=== PATIENT | male | born 1955 | race Caucasian/White ===

== ENCOUNTER 2016-08-13 21:32 | Inpatient (IN) | payer BC ==
[2016-08-13] MEDS ORDERED: Diazepam SYRINGE* 5 MG/ML 2 ML SYRINGE (10 MG total) IV ONE (21:39)
[2016-08-13] MEDS ORDERED: Morphine INJ* 4 MG/ML 1 ML CARPUJECT IV ONE ×2 (21:47→22:09)
[2016-08-13] MEDS ORDERED: Ondansetron INJ* 2 MG/ML VIAL IV ONE (21:47)
[2016-08-13] MEDS ORDERED: Ketorolac INJ* 30 MG/ML 1 ML VIAL IV PUSH ONE (22:04)
[2016-08-13] MEDS ORDERED: NS 0.9% 1000 ML* 1,000 ML IV ONE (22:05)
--- NOTE | 2016-08-13 22:15 | ED ---
Back Pain - HPI Summary HPI Summary: Pt here w/ acute LBP. Fell last week in the snow onto his bottom but reports this was not a very hard nor serious appearing fall. No acute pain at that time but has had progressive soreness which developed into pain and eventually took him to his PCP's office. There he was dx'd w/ back pain and started on a methylprednisolone steroid taper, cyclobenzaprine and oxycontin for back pain. He's not sure where he is in his steroid taper. He was doing somewhat better on his meds until he was getting up to go to the bathroom tonight and moved "just right", triggering worse back pain which rendered him disabled. BIBA as his pain was intolerable and he couldn't move. Denies pain radiating into LE's and no incontinence of bowels/bladder. Denies N/V/D, ab pain , dysuria, urinary frequency, genital pain. No known h/o back issues. NOTE: pt has a baseline B/L pedal neuropathy which presents as a burning sensation in his feet. Etiology is unknown. 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 - Pain Intensity: 10 <Yvette Marin - Last Filed: 08/14/16 02:28> <Adrianne Horowitz - Last Filed: 08/15/16 19:38> - History of Current Complaint Chief Complaint: EDBackInjuryPain Stated Complaint: LOWER BACK PAIN Time Seen by Provider: 08/13/16 21:40 - Allergies/Home Medications Allergies/Adverse Reactions: Allergies Allergy/AdvReac Type Severity Reaction Status Date / Time No Known Allergies Allergy Verified 07/03/15 15:53 Home Medications: Home Medications Cyclobenzaprine TAB* [Flexeril TAB*] 10 mg PO TID PRN 08/14/16 [History Confirmed 08/14/16] Methylprednisolone [Medrol Dosepak 4 MG*] 0 mg PO .SEE SHERI INSTRUCTION 08/14/16 [History Confirmed 08/14/16] oxyCODONE SR TAB(*) [Oxycontin 10 mg (*)] 40 mg PO Q12HR 08/14/16 [History Confirmed 08/14/16] PMH/Surg Hx/FS Hx/Imm Hx Previously Healthy: No - recent back injury tx'd by PCP Endocrine/Hematology History: Reports: Other Endocrine/Hematological Disorders - Hematology w/u w/ Dr. Villanueva re: elevated RBC's and light chains Denies: Hx Anticoagulant Therapy, Hx Blood Disorders, Hx Diabetes Cardiovascular History: Denies: Hx Hypertension, Hx Pacemaker/ICD Respiratory History: Reports: Hx Sleep Apnea - CPAP - limited time per night as he pulls it off in his sleep - max 4 hrs History: Denies: Hx Renal Disease Sensory History: Reports: Hx Contacts or Glasses - CONTACTS- WILL WEAR GLASSES DAY OF SURGERY Denies: Hx Hearing Aid Opthamlomology History: Reports: Hx Contacts or Glasses - CONTACTS- WILL WEAR GLASSES DAY OF SURGERY Neurological History: Reports: Other Neuro Impairments/Disorders - tinnitus & B/ L peripheral neuropathy of unknown etiology Psychiatric History: Reports: Hx Anxiety, Other Psychiatric Issues/Disorders - insomnia - falls asleep but difficulty staying asleep Denies: Hx Panic Disorder - Surgical History Surgery Procedure, Year, and Place: L KNEE ACL - 1990- DR SAEZ. HERNIA 01/2014 Hx Anesthesia Reactions: No Infectious Disease History: No Infectious Disease History: Denies: History Other Infectious Disease, Traveled Outside the [place] in Last 30 Days - Family History Known Family History: Positive: None - Social History Occupation: Employed Full-time - self-employed, restaurant temple meat cutter Lives: With Family Alcohol Use: None Hx Substance Use: No Substance Use Type: Reports: None Hx Tobacco Use: No Smoking Status (MU): Never Smoked Tobacco <Yvette Marin - Last Filed: 08/14/16 02:28> Review of Systems Negative: Fever, Chills Negative: Chest Pain Negative: Shortness Of Breath Negative: Abdominal Pain, Vomiting, Diarrhea, Nausea Negative: dysuria, discharge, frequency, incontinence Musculoskeletal: Other - see HPI Negative: Bruising Neurological: Negative Positive: Anxious All Other Systems Reviewed And Are Negative: Yes <Yvette Marin - Last Filed: 08/14/16 02:28> Physical Exam Triage Information Reviewed: Yes Vital Signs On Initial Exam: Initial Vitals Resp 24 08/13/16 21:39 Vital Signs Reviewed: Yes Appearance: Positive: Well-Appearing, Well-Nourished, Pain Distress - pt straining in pain - hyperventilating at times Skin: Positive: Warm, Dry Head/Face: Positive: Normal Head/Face Inspection Eyes: Positive: Normal, EOMI, Conjunctiva Clear ENT: Positive: Other - mucosa dry Respiratory/Lung Sounds: Positive: Clear to Auscultation, Breath Sounds Present. Negative: Rales, Rhonchi, Wheezes Cardiovascular: Positive: Normal, RRR, Pulses are Symmetrical in both Upper and Lower Extremities, S1, S2. Negative: Leg Edema Left, Leg Edema Right Abdomen Description: Positive: Nontender, Soft. Negative: Pulsatile Mass Bowel Sounds: Positive: Present Musculoskeletal: Positive: Limited @ Neurological: Positive: Normal, Sensory/Motor Intact, Alert, Oriented to Person Place, Time, CN Intact II-III, Other - no saddle paresthesia appreciated Psychiatric: Positive: Anxious <Yvette Marin - Last Filed: 08/14/16 02:28> Vital Signs On Initial Exam: Initial Vitals Resp 24 08/13/16 21:39 <Adrianne Horowitz - Last Filed: 08/15/16 19:38> Diagnostics - Vital Signs Vital Signs Temp Pulse Resp BP Pulse Ox 08/13/16 21:45 98.5 F 107 22 145/94 96 08/13/16 21:44 24 08/13/16 21:39 24 - Laboratory Result Diagrams: 08/14/16 01:40 08/14/16 01:40 Lab Statement: Any lab studies that have been ordered have been reviewed, and results considered in the medical decision making process. <Yvette Marin - Last Filed: 08/14/16 02:28> - Vital Signs Vital Signs Temp Pulse Resp BP Pulse Ox 08/14/16 05:00 87 14 138/87 96 08/14/16 04:30 87 17 130/77 97 08/14/16 04:15 20 08/14/16 04:00 101 17 130/80 97 08/14/16 03:30 96 19 128/79 96 08/14/16 03:00 102 19 130/77 96 08/14/16 02:30 94 18 136/86 96 08/14/16 02:00 99 15 144/83 99 08/14/16 01:30 122 41 126/86 97 08/14/16 01:00 109 22 145/84 95 08/14/16 00:30 109 20 129/78 83 08/14/16 00:01 91 19 145/79 100 08/13/16 23:30 133/85 08/13/16 23:07 22 08/13/16 23:00 94 28 129/70 99 08/13/16 22:51 102 30 99 08/13/16 22:30 99 40 119/77 98 08/13/16 22:15 22 08/13/16 22:00 100 15 140/97 96 08/13/16 21:49 104 96 08/13/16 21:48 145/94 08/13/16 21:45 98.5 F 107 22 145/94 96 08/13/16 21:44 24 08/13/16 21:39 24 - Laboratory Lab Results: Lab Results 08/13/16 08/14/16 08/14/16 Range/Units 22:55 01:40 01:40 WBC 18.1 H (3.5-10.8) 10^3/ul RBC 5.94 H (4.0-5.4) 10^6/ul Hgb 16.8 (14.0-18.0) g/dl Hct 51 (42-52) % MCV 86 (80-94) fL MCH 28 (27-31) pg MCHC 33 (31-36) g/dl RDW 14 (10.5-15) % Plt Count 202 (150-450) 10^3/ul MPV 7 L (7.4-10.4) um3 Neut % (Auto) 69.3 (38-83) % Lymph % (Auto) 21.6 L (25-47) % Swain % (Auto) 8.4 (1-9) % Eos % (Auto) 0.2 (0-6) % Baso % (Auto) 0.5 (0-2) % Absolute Neuts (auto) 12.5 H (1.5-7.7) 10^3/ul Absolute Lymphs (auto) 3.9 (1.0-4.8) 10^3/ul Absolute Monos (auto) 1.5 H (0-0.8) 10^3/ul Absolute Eos (auto) 0 (0-0.6) 10^3/ul Absolute Basos (auto) 0.1 (0-0.2) 10^3/ul Absolute Nucleated RBC 0.01 10^3/ul Nucleated RBC % 0 Sodium 134 (133-145) mmol/L Potassium 3.6 (3.5-5.0) mmol/L Chloride 101 (101-111) mmol/L Carbon Dioxide 26 (22-32) mmol/L Anion Gap 7 (2-11) mmol/L BUN 25 H (6-24) mg/dL Creatinine 1.31 H (0.67-1.17) mg/dL Est GFR ( Amer) 72.0 (>60) Est GFR (Non-Af Amer) 56.0 (>60) BUN/Creatinine Ratio 19.1 (8-20) Glucose 91 (70-100) mg/dL Lactic Acid (0.5-2.0) mmol/L Calcium 8.9 (8.6-10.3) mg/dL Total Bilirubin 1.00 (0.2-1.0) mg/dL AST 15 (13-39) U/L ALT 11 (7-52) U/L Alkaline Phosphatase 45 (34-104) U/L Total Creatine Kinase 104 (10-223) U/L C-Reactive Protein < 1.00 (< 5.00) mg/L Total Protein 6.3 L (6.4-8.9) g/dL Albumin 3.4 (3.2-5.2) g/dL Globulin 2.9 (2-4) g/dL Albumin/Globulin Ratio 1.2 (1-3) Urine Color Straw Urine Appearance Clear Urine pH 6.0 (5-9) Ur Specific [place] 1.003 L (1.010-1.030) Urine Protein Negative (Negative) Urine Ketones Negative (Negative) Urine Blood Negative (Negative) Urine Nitrate Negative (Negative) Urine Bilirubin Negative (Negative) Urine Urobilinogen Negative (Negative) Ur Leukocyte Esterase Negative (Negative) Urine Glucose Negative (Negative) 08/14/16 Range/Units 01:40 WBC (3.5-10.8) 10^3/ul RBC (4.0-5.4) 10^6/ul Hgb (14.0-18.0) g/dl Hct (42-52) % MCV (80-94) fL MCH (27-31) pg MCHC (31-36) g/dl RDW (10.5-15) % Plt Count (150-450) 10^3/ul MPV (7.4-10.4) um3 Neut % (Auto) (38-83) % Lymph % (Auto) (25-47) % Swain % (Auto) (1-9) % Eos % (Auto) (0-6) % Baso % (Auto) (0-2) % Absolute Neuts (auto) (1.5-7.7) 10^3/ul Absolute Lymphs (auto) (1.0-4.8) 10^3/ul Absolute Monos (auto) (0-0.8) 10^3/ul Absolute Eos (auto) (0-0.6) 10^3/ul Absolute Basos (auto) (0-0.2) 10^3/ul Absolute Nucleated RBC 10^3/ul Nucleated RBC % Sodium (133-145) mmol/L Potassium (3.5-5.0) mmol/L Chloride (101-111) mmol/L Carbon Dioxide (22-32) mmol/L Anion Gap (2-11) mmol/L BUN (6-24) mg/dL Creatinine (0.67-1.17) mg/dL Est GFR ( Amer) (>60) Est GFR (Non-Af Amer) (>60) BUN/Creatinine Ratio (8-20) Glucose (70-100) mg/dL Lactic Acid 1.8 (0.5-2.0) mmol/L Calcium (8.6-10.3) mg/dL Total Bilirubin (0.2-1.0) mg/dL AST (13-39) U/L ALT (7-52) U/L Alkaline Phosphatase (34-104) U/L Total Creatine Kinase (10-223) U/L C-Reactive Protein (< 5.00) mg/L Total Protein (6.4-8.9) g/dL Albumin (3.2-5.2) g/dL Globulin (2-4) g/dL Albumin/Globulin Ratio (1-3) Urine Color Urine Appearance Urine pH (5-9) Ur Specific [place] (1.010-1.030) Urine Protein (Negative) Urine Ketones (Negative) Urine Blood (Negative) Urine Nitrate (Negative) Urine Bilirubin (Negative) Urine Urobilinogen (Negative) Ur Leukocyte Esterase (Negative) Urine Glucose (Negative) Result Diagrams: 08/15/16 05:21 08/15/16 05:21 Lab Statement: Any lab studies that have been ordered have been reviewed, and results considered in the medical decision making process. <Adrianne Horowitz - Last Filed: 08/15/16 19:38> Re-Evaluation - Re-Evaluation First Eval Change: Unchanged - morphine 4mg IV Second Eval Change: Unchanged - valium 5mg IV Third Eval Change: Improved - s/p IV dilaudid 1mg <Yvette Marin - Last Filed: 08/14/16 02:28> Back Pain Course/Dx - Course Course Of Treatment: Pt presents in acute pain distress - multiple IV meds and NS provided and finally dilaudid IV took pt from a 1010 to a 7/10. He is most comfortable lying flat on his back w/ knees slightly flexed. CT imaging reveals mild degenerative changes of his lumbar spine w/o tej nerve pathology and no dissection identified. After a long conversation, pt is under a lot of stress and has not been sleeping well for years. He has some neuropathic pain in his feet which has not been completely addressed and he's still waiting on results from Dr. Villanueva's office which is stressful. The pain he's feeling in his back is inhibiting him from movement out of a supine position. Discussed with Dr. Flannery who will consult re: admission for disabling pain. NOTE: he also has an elevated WBC - this may be the result of acute inflammation from his severe pain response however in light of hematology w/u w/ Dr. Villanueva, may have other implications in his overall condition. - Provider Notifications Discussed Care of Patient With: Dr. Horowitz. Dr. Flannery <Yvette Marin - Last Filed: 08/14/16 02:28> <Adrianne Horowitz - Last Filed: 08/15/16 19:38> - Diagnoses Provider Diagnoses: Intractable back pain Discharge <Yvette Marin - Last Filed: 08/14/16 02:28> <Adrianne Horowitz - Last Filed: 08/15/16 19:38> - Discharge Plan Condition: Stable Disposition: ADMITTED TO [facility] User Type: Provider - I was available for consult. This patient was seen by the advanced practice provider. The patient was not seen by or examined by me. <Adrianne Horowitz - Last Filed: 08/15/16 19:38>
[2016-08-13] MEDS ORDERED: HYDROmorphone INJ* 1 MG/ML CARPUJECT SYRINGE IV SLOW PU ONE (22:58)
[2016-08-14] MEDS ORDERED: Iodixanol* (CONTRAST) 320 MG/ML 100 ML SDV IV ONE (00:05)
[2016-08-14] MEDS ORDERED: Ondansetron INJ* 2 MG/ML VIAL ONE (01:02)
[2016-08-14] MEDS ORDERED: Ondansetron INJ* 2 MG/ML VIAL IV ONE (01:02)
[2016-08-14 01:56] LABS: Urine Bilirubin Negative (Negative); Urine Glucose Negative (Negative); Urine Nitrite Negative (Negative)
[2016-08-14 01:57] LABS: Hematocrit 51 % (42-52); Hemoglobin 16.8 g/dl (14.0-18.0); Mean Corpuscular HGB Conc 33 g/dl (31-36); Mean Corpuscular Hemoglobin 28 pg (27-31); Mean Corpuscular Volume 86 fL (80-94); Mean Platelet Volume 7 um3 (7.4-10.4); Red Blood Count 5.94 10^6/ul (4.0-5.4); Red Cell Distribution Width 14 % (10.5-15); White Blood Count 18.1 10^3/ul (3.5-10.8)
[2016-08-14 02:12] LABS: ALT 11 U/L (7-52); AST 15 U/L (13-39); Albumin 3.4 g/dL (3.2-5.2); Alkaline Phosphatase 45 U/L (34-104); Anion Gap 7 mmol/L (2-11); BUN/Creatinine Ratio 19.1 (8-20); Blood Urea Nitrogen 25 mg/dL (6-24); C Reactive Protein < 1.00 mg/L (< 5.00); CO2 Carbon Dioxide 26 mmol/L (22-32); Calcium 8.9 mg/dL (8.6-10.3); Chloride 101 mmol/L (101-111); Creatine Kinase 104 U/L (10-223); Globulin 2.9 g/dL (2-4); Glucose 91 mg/dL (70-100); Potassium 3.6 mmol/L (3.5-5.0); Sodium 134 mmol/L (133-145); Total Protein 6.3 g/dL (6.4-8.9)
[2016-08-14] MEDS ORDERED: HYDROmorphone INJ* 1 MG/ML CARPUJECT SYRINGE ONE ×2 (04:09→08:46)
[2016-08-14] MEDS: HYDROmorphone INJ* 1 MG/ML CARPUJECT SYRINGE IV SLOW PU PRN ×3 (04:15→09:08)
[2016-08-14] MEDS ORDERED: clonazePAM TAB(*) 1 MG PO PRN (04:54)
[2016-08-14] MEDS ORDERED: Acetaminophen SUPP* 650 MG SUPP PR PRN (04:55)
[2016-08-14] MEDS ORDERED: Ketorolac INJ* 15 MG/ML 1 ML VIAL IV PUSH PRN (04:56)
[2016-08-14] MEDS: Heparin VIAL(*) 5000 UNITS/ML VIAL (FIVE THOUSAND) SUBCUT SCH ×2 (05:38→13:44)
[2016-08-14] MEDS: Cyclobenzaprine TAB* 10 MG PO PRN ×2 (06:44→20:08)
--- NOTE | 2016-08-14 06:51 | RAD ---
INDICATION: Chest and back pain COMPARISON: CT abdomen pelvis October 13, 2008 TECHNIQUE: Axial source images were obtained from the thoracic inlet to the symphysis pubis following administration of oral and intravenous contrast. 100 mL Visipaque 320 was utilized. Coronal and sagittal reconstructed images were acquired. CHEST FINDINGS: Neck/thyroid: The visualized neck to include the thyroid appear normal. Chest wall: There are no acute abnormalities of the bony thorax or chest wall. There is no supraclavicular, infraclavicular, or axillary lymphadenopathy. Lungs : There are no pulmonary parenchymal masses or infiltrates. The pulmonary interstitium appears normal. There are no endobronchial lesions. Cardiomediastinal structures: The heart is normal in size. There is no pericardial effusion. There is no evidence of aortic aneurysm or dissection. The pulmonary vessels appear normal. There is no mediastinal or hilar adenopathy. The esophagus appears normal. Pleura : There are no pleural-based masses or effusions. ABDOMINAL/PELVIC FINDINGS: Liver: The liver is normal in size. There are no masses. There is no ductal dilatation. Gallbladder: There are no calcified gallstones. There is no evidence of wall thickening or pericholecystic fluid. Spleen: The spleen is normal in size. There are no masses. Pancreas: There is no evidence of pancreatic mass or ductal dilatation. Adrenal glands: There is no evidence of adrenal mass. Kidneys: The kidneys are normal in size and position. There are prompt nephrograms and there is prompt excretion bilaterally. There are no renal parenchymal masses. There is focal volume loss in the midpole region of the right kidney appearing unchanged and consistent with scarring. There is no evidence of nephrolithiasis. Adenopathy: There is no evidence of adenopathy by size criteria. Fluid collections: There are no free or localized fluid collections. Vessels: There is no evidence of aortic aneurysm or dissection. Aortic caliber as are normal throughout. There are mild intimal calcifications. The visceral branches arise satisfactorily. GI tract: There are no acute CT bowel findings. There is no obstruction. The stomach and small bowel appear normal. The lower GI tract is normal. The cecum, ileocecal valve, and terminal ileum appear normal. The appendix is visualized and appear normal. Pelvic organs: The prostate and seminal vesicles appear normal Bladder: There are no bladder masses. Abdominal and pelvic soft tissues: The extraperitoneal abdominal and pelvic soft tissues appear normal. There are no inguinal hernias. Osseous structures: There are no acute osseous findings. Please refer also to separate lumbar CT report. IMPRESSION: NO ACUTE CT FINDINGS. NO EVIDENCE OF ANEURYSM OR DISSECTION.
--- NOTE | 2016-08-14 06:59 | RAD ---
INDICATION: Back pain COMPARISON: CT abdomen pelvis October 13, 2008 TECHNIQUE: Noncontrast axial source images was performed from the thoracolumbar junction to the sacrum. Coronal and and sagittal reformatted images were generated. FINDINGS: Vertebrae: There is no fracture or acute focal bony lesion. There is spurring at the thoracolumbar junction most prominent on the left. Alignment: There is minor convexity of the mid lumbar spine to the right. Central Canal: There are no significant CT abnormalities of the central canal or foramina. MR imaging is a more sensitive method to evaluate the canal and foramina. Intervertebral disc spaces: The disc spaces are maintained. Soft tissues: The paravertebral soft tissues are normal. Other: None IMPRESSION: MINOR SPURRING ABOUT THE THORACOLUMBAR JUNCTION. NO ACUTE CT FINDINGS.
[2016-08-14] MEDS: TESTOSTERONE 1.62% TD SCH (08:24)
[2016-08-14] MEDS: oxyCODONE SR TAB(*) 40 MG TAB.SR PO SCH ×2 (08:29→20:09)
[2016-08-14] MEDS ORDERED: HYDROmorphone INJ* 1 MG/ML CARPUJECT SYRINGE IV SLOW PU ONE (08:45)
[2016-08-14] MEDS: NS 0.9% 1000 ML* 1,000 ML IV SCH ×2 (09:27→17:42)
[2016-08-14] MEDS: HYDROmorphone INJ* 2 MG/ML CARPUJECT SYRINGE IV SLOW PU PRN ×3 (12:12→20:11)
[2016-08-14] MEDS: Ondansetron INJ* 2 MG/ML VIAL IV PRN ×3 (12:12→20:48)
--- NOTE | 2016-08-14 12:42 | HP ---
HISTORY AND PHYSICAL: DATE OF ADMISSION: 08/14/16 PRIMARY CARE PHYSICIAN: Dr. Walker. CHIEF COMPLAINT: Back pain. HISTORY OF PRESENT ILLNESS: The patient is a 61-year-old gentleman, who states he has had severe low back pain and had to come to the ED today. It started about a week ago, but states it may be related to a fall 3 to 4 weeks ago, which he did not think much of at that time. However, slowly after that, he started developing increased low back pain. It got to the point where he had to go to the doctor this week and saw Dr. Palafox, who prescribed him pain medications as well as steroids. He was hoping the pain would improve over the next couple of days, but in fact, it got much worse. At its worst, it was 10/ 10 in severity. Today, he started walking and he moved one way and almost collapsed. He could not move and had to be taken by stretcher to the ER. In the ER, the patient did receive several doses of pain medication but unfortunately, was still unable to ambulate and had intractable pain. PAST MEDICAL HISTORY: The patient has no significant past medical history. CURRENT MEDICATIONS: 1. Flexeril 10 mg 3 times a day as needed. 2. OxyContin 40 mg every 12 hours. 3. Medrol Dosepak. 4. Clonazepam 1 mg at bedtime as needed. 5. Testosterone 1.62% transdermal daily. 6. Ibuprofen 600 mg every 4 hours as needed. ALLERGIES: He has no known drug allergies. FAMILY HISTORY: Mother is alive at 88 and has heart issues. Father is 94, alive and well. SOCIAL HISTORY: No tobacco, alcohol, or recreational drug use. 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 He is . He has 2 children. His Rosa Elena Pollack is his healthcare proxy. REVIEW OF SYSTEMS: A 14-point review of systems was completed with the patient. All pertinent positives and negatives are in the history of present illness, otherwise, negative. PHYSICAL EXAMINATION GENERAL: A pleasant gentleman lying in bed in no acute distress. VITAL SIGNS: Temperature 98.1 degrees, heart rate is 91 beats per minute, respiratory rate is 22 breaths per minute, pulse ox 100%, blood pressure 102/84. HEENT: Normocephalic, atraumatic. Pupils are equal, round, and reactive to light. Moist mucous membranes. NECK: Supple. No JVD, bruits, palpable thyroid, or lymphadenopathy. LUNGS: Clear to auscultation and percussion bilaterally. HEART: S1 and S2 appreciated. Regular rate and rhythm. ABDOMEN: Positive bowel sounds in all 4 quadrants. Soft, nontender, nondistended. EXTREMITIES: No cyanosis, clubbing, or edema. NEUROLOGIC: He is alert and oriented x3. He moves all extremities. Cannot adequately assess the patient as he insisted on remaining still because the pain is too hard to take. However, he does have +2 DTRs throughout and he has no evidence of fecal or urinary incontinence. DIAGNOSTIC STUDIES/LAB DATA: EKG shows normal sinus rhythm at 96 beats per minute, left axis deviation, no acute ST-T wave changes. CT of the lumbar spine, preliminary results showed no significant findings. CTA of the abdomen and pelvis is not available for viewing. White count is 18.1, hemoglobin 16.8, hematocrit 51, platelets 202. Sodium 134, potassium 3.6, chloride 101, CO2 of 26, BUN 25, creatinine 1.2, glucose 91. Urinalysis is unremarkable. ASSESSMENT AND PLAN: 1. Intractable low back. At this point, it is unclear as to why he has this. I am a little concerned with his white count being 18.1. He was on a Medrol Dosepak, but it should not increase it that much. He does not seem to have an infectious process though. I will place him on Dilaudid and Flexeril. I will give him Toradol as well. I will ask Physical Therapy to see him. I have ordered an MRI of his lumbar spine. If he does not improve, we will ask Neurosurgery for their input, but I suspect he should rapidly improve with the current regimen. 2. Fluids, electrolytes, and nutrition. Regular diet 3. Deep vein thrombosis prophylaxis. Heparin subcu. 4. The patient is a full code. TIME SPENT: Over 75 minutes were spent on this H and P; more than 40 minutes of which was spent in direct [id number] contact with the patient in evaluation , physical exam, and counseling and coordination of care. CC: Dr. Walker* [id number]/[facility] #: [id number] [facility]
--- NOTE | 2016-08-14 14:47 | PN ---
Subjective Date of Service: 08/14/16 Interval History: pt feels much better after increase in the dose of Dilaudid. still "afraid to move" due to causing more spasm in his back. Denies urinary incontinence. Last BM yesterday,. denies muscle weakness or sensation deficit. Has h/o "burning neuropathy " of b/l feet x 2 years Objective Active Medications: Acetaminophen (Tylenol Supp*) 650 mg HI Q4H PRN PRN Reason: FEVER/PAIN Clonazepam (Klonopin Tab(*)) 1 mg PO BEDTIME PRN PRN Reason: INSOMNIA Cyclobenzaprine HCl (Flexeril Tab*) 10 mg PO TID PRN PRN Reason: spasms Last Admin: 08/14/16 06:44 Dose: 10 mg Heparin Sodium (Porcine) (Heparin Vial(*)) 5,000 units SUBCUT Q8HR [facility] Last Admin: 08/14/16 13:44 Dose: 5,000 units Hydromorphone HCl (Dilaudid Iv*) 2 mg IV SLOW PU Q2H PRN PRN Reason: PAIN Last Admin: 08/14/16 12:12 Dose: 2 mg Sodium Chloride (Ns 0.9% 1000 Ml*) 1,000 mls @ 125 mls/hr IV PER RATE [facility] Last Admin: 08/14/16 09:27 Dose: 125 mls/hr Ketorolac Tromethamine (Toradol Inj*) 15 mg IV PUSH Q6H PRN PRN Reason: PAIN Last Admin: 08/14/16 06:44 Dose: 15 mg Non-Formulary Medication (Testosterone [Androgel Pump]) 1.62 % TD DAILY [facility] Last Admin: 08/14/16 08:24 Dose: Not Given Ondansetron HCl (Zofran Inj*) 4 mg IV Q4H PRN PRN Reason: NAUSEA Last Admin: 08/14/16 12:12 Dose: 4 mg Oxycodone HCl (Oxycontin(*)) 40 mg PO Q12HR [facility] Last Admin: 08/14/16 08:29 Dose: 40 mg Vital Signs 08/14/16 08/14/16 08/14/16 05:15 05:30 06:16 Temperature 98.1 F Pulse Rate 90 83 Respiratory 20 15 22 Rate Blood Pressure 135/77 142/84 (mmHg) O2 Sat by Pulse 98 100 Oximetry 08/14/16 08/14/16 08/14/16 06:44 07:14 08:23 Temperature 98.0 F Pulse Rate 96 Respiratory 16 18 16 Rate Blood Pressure 128/74 (mmHg) O2 Sat by Pulse 100 Oximetry 08/14/16 08/14/16 08/14/16 08:29 08:48 08:50 Temperature Pulse Rate Respiratory 16 20 16 Rate Blood Pressure (mmHg) O2 Sat by Pulse Oximetry 08/14/16 08/14/16 08/14/16 09:08 10:08 12:12 Temperature Pulse Rate Respiratory 16 16 16 Rate Blood Pressure (mmHg) O2 Sat by Pulse Oximetry 08/14/16 08/14/16 12:31 13:09 Temperature 97.7 F Pulse Rate 83 Respiratory 16 Rate Blood Pressure 119/76 (mmHg) O2 Sat by Pulse 94 Oximetry Oxygen Devices in Use Now: None Appearance: 61 yo M in nAd, AAOx3 Eyes: No Scleral Icterus, PERRLA Ears/Nose/Mouth/Throat: NL Teeth, Lips, Gums, Mucous Membranes Moist Neck: NL Appearance and Movements; NL JVP, Trachea Midline Respiratory: Symmetrical Chest Expansion and Respiratory Effort, Clear to Auscultation Cardiovascular: NL Sounds; No Murmurs; No JVD, RRR Abdominal: NL Sounds; No Tenderness; No Distention, No Hepatosplenomegaly Lymphatic: No Cervical Adenopathy Extremities: No Edema, No Clubbing, Cyanosis Skin: No Rash or Ulcers, No Nodules or Sclerosis Neurological: Alert and Oriented x 3, NL Muscle Strength and Tone, - - ROM in b/ l LE's limited due to pain ilicited in lower back with leg movement. Babinski neg b/l. Good muscle tone throughout. Pain worse with b/l straight leg raise Result Diagrams: 08/14/16 01:40 08/14/16 01:40 Assess/Plan/Problems-Billing Assessment: 61 yo M with h/o bask pain x 1 week, that got suddenly worse on 08/13 after a turn to the right. H/o MGUS and CLL on BM bx in 2016. H/o skin lesion excised on upper anterior chest with pathology for positive for "Atypical lymphoplasmacytic infiltrate". - Patient Problems (1) Back pain Comment: intractable, suspect DDD, but due to h/o MGUS MRI with and without contrast will be obtained in AM for now will cont Dilaudid, Oxycontin and Flexeril (2) DVT prophylaxis Comment: heparin sc (3) Leukocytosis Comment: due to stress, no evidence of infection will monitor (4) Acute renal failure Comment: pt had been using NSAIDS at home will cont gentle hydration, monitor
[2016-08-14] MEDS: PROCHLORPERAZINE INJ 5 MG/ML 2 ML VIAL IV PRN (15:45)
[2016-08-14] MEDS ORDERED: Docusate CAP* 100 MG PO PRN (20:12)
[2016-08-14] MEDS ORDERED: Polyethylene Glycol 3350* 17 GM PACKET PO PRN (20:12)
[2016-08-14] MEDS ORDERED: Senna TAB PO PRN (20:12)
[2016-08-15] MEDS ORDERED: Calcium Carbonate CHEW TAB* 500 MG (TUMS) PO PRN (00:02)
[2016-08-15] MEDS ORDERED: Al Hydrox/Mg Hydrox/Simet LIQ* 30 ML UDC PO PRN (00:02)
[2016-08-15] MEDS: Heparin VIAL(*) 5000 UNITS/ML VIAL (FIVE THOUSAND) SUBCUT SCH ×3 (00:41→14:25)
[2016-08-15] MEDS: HYDROmorphone INJ* 2 MG/ML CARPUJECT SYRINGE IV SLOW PU PRN ×5 (00:51→14:25)
[2016-08-15] MEDS: Ondansetron INJ* 2 MG/ML VIAL IV PRN ×3 (00:52→14:24)
[2016-08-15 05:53] LABS: Hematocrit 50 % (42-52); Hemoglobin 16.5 g/dl (14.0-18.0); Mean Corpuscular HGB Conc 33 g/dl (31-36); Mean Corpuscular Hemoglobin 29 pg (27-31); Mean Corpuscular Volume 87 fL (80-94); Mean Platelet Volume 7 um3 (7.4-10.4); Red Blood Count 5.72 10^6/ul (4.0-5.4); Red Cell Distribution Width 14 % (10.5-15); White Blood Count 10.6 10^3/ul (3.5-10.8)
[2016-08-15 06:08] LABS: BUN/Creatinine Ratio 13.9 (8-20); C Reactive Protein 19.15 mg/L (< 5.00); EGFR African American 97.2 (>60); EGFR Non-African American 75.6 (>60); Potassium 4.1 mmol/L (3.5-5.0)
[2016-08-15] MEDS: oxyCODONE SR TAB(*) 40 MG TAB.SR PO SCH (08:10)
[2016-08-15] MEDS: TESTOSTERONE 1.62% TD SCH (08:19)
[2016-08-15] MEDS ORDERED: Diazepam SYRINGE* 5 MG/ML 2 ML SYRINGE (10 MG total) IV PRN (10:47)
[2016-08-15] MEDS ORDERED: Diazepam SYRINGE* 5 MG/ML 2 ML SYRINGE (10 MG total) ONE (10:53)
--- NOTE | 2016-08-15 10:54 | PN ---
Subjective Date of Service: 08/15/16 Interval History: Seen right after developing a muscle spasm in lower back. Up to that point "it felt better" No bowel, or bladder incontinence. Has had nausea with Dilaudid Objective Active Medications: Acetaminophen (Tylenol Supp*) 650 mg AL Q4H PRN PRN Reason: FEVER/PAIN Al Hydrox/Mg Hydrox/Simethicone (Maalox Plus*) 30 ml PO Q6H PRN PRN Reason: INDIGESTION Last Admin: 08/15/16 00:39 Dose: 30 ml Calcium Carbonate (Tums*) 500 mg PO Q6H PRN PRN Reason: INDIGESTION Clonazepam (Klonopin Tab(*)) 1 mg PO BEDTIME PRN PRN Reason: INSOMNIA Cyclobenzaprine HCl (Flexeril Tab*) 10 mg PO TID PRN PRN Reason: spasms Last Admin: 08/14/16 20:08 Dose: 10 mg Diazepam (Valium Syringe*) 2 mg IV Q8H PRN PRN Reason: SPASMS Docusate Sodium (Colace Cap*) 100 mg PO BID PRN PRN Reason: CONSTIPATION Heparin Sodium (Porcine) (Heparin Vial(*)) 5,000 units SUBCUT Q8HR [facility] Last Admin: 08/15/16 07:06 Dose: 5,000 units Hydromorphone HCl (Dilaudid Iv*) 2 mg IV SLOW PU Q2H PRN PRN Reason: PAIN Last Admin: 08/15/16 08:05 Dose: 2 mg Non-Formulary Medication (Testosterone [Androgel Pump]) 1.62 % TD DAILY [facility] Last Admin: 08/15/16 08:19 Dose: Not Given Ondansetron HCl (Zofran Inj*) 4 mg IV Q4H PRN PRN Reason: NAUSEA Last Admin: 08/15/16 08:02 Dose: 4 mg Oxycodone HCl (Oxycontin(*)) 40 mg PO Q12HR [facility] Last Admin: 08/15/16 08:10 Dose: 40 mg Polyethylene Glycol/Electrolytes (Miralax*) 17 gm PO DAILY PRN PRN Reason: CONSTIPATION Prochlorperazine Edisylate (Compazine Inj*) 5 mg IV Q6H PRN PRN Reason: NAUSEA/VOMITING Last Admin: 08/14/16 15:45 Dose: 5 mg Senna (Senokot Tab*) 2 tab PO BEDTIME PRN PRN Reason: CONSTIPATION Vital Signs 08/14/16 08/14/16 08/14/16 12:12 12:31 13:09 Temperature 97.7 F Pulse Rate 83 Respiratory 16 16 Rate Blood Pressure 119/76 (mmHg) O2 Sat by Pulse 94 Oximetry 08/14/16 08/14/16 08/14/16 15:56 17:38 18:38 Temperature 97.9 F Pulse Rate 89 Respiratory 16 16 16 Rate Blood Pressure 138/88 (mmHg) O2 Sat by Pulse 95 Oximetry 08/14/16 08/14/16 08/14/16 19:14 20:00 20:08 Temperature 98.0 F Pulse Rate 92 Respiratory 16 22 22 Rate Blood Pressure 131/82 (mmHg) O2 Sat by Pulse 96 Oximetry 08/14/16 08/14/16 08/14/16 20:09 20:11 21:11 Temperature Pulse Rate Respiratory 22 22 20 Rate Blood Pressure (mmHg) O2 Sat by Pulse Oximetry 08/14/16 08/14/16 08/14/16 22:08 22:09 23:44 Temperature 97.8 F Pulse Rate 98 Respiratory 20 20 16 Rate Blood Pressure 132/80 (mmHg) O2 Sat by Pulse 93 Oximetry 08/15/16 08/15/16 08/15/16 00:51 01:51 03:44 Temperature 97.5 F Pulse Rate 101 Respiratory 20 20 18 Rate Blood Pressure 142/97 (mmHg) O2 Sat by Pulse 97 Oximetry 08/15/16 08/15/16 08/15/16 03:53 04:53 08:05 Temperature Pulse Rate Respiratory 20 20 18 Rate Blood Pressure (mmHg) O2 Sat by Pulse Oximetry 08/15/16 08:10 Temperature Pulse Rate Respiratory 18 Rate Blood Pressure (mmHg) O2 Sat by Pulse Oximetry Oxygen Devices in Use Now: None Appearance: 61 yo M in nAd, aAOx3 Eyes: No Scleral Icterus, PERRLA Ears/Nose/Mouth/Throat: NL Teeth, Lips, Gums, Mucous Membranes Moist Neck: NL Appearance and Movements; NL JVP Respiratory: Symmetrical Chest Expansion and Respiratory Effort, Clear to Auscultation Cardiovascular: NL Sounds; No Murmurs; No JVD, RRR Abdominal: NL Sounds; No Tenderness; No Distention Lymphatic: No Cervical Adenopathy Extremities: No Edema, No Clubbing, Cyanosis Skin: No Rash or Ulcers, No Nodules or Sclerosis Neurological: Alert and Oriented x 3, - - good muscle tone in b/l LE's, unable to rase legs off bed past 10 degrees due to muscle spasms and pain, Babinski neg b/l Result Diagrams: 08/15/16 05:21 08/15/16 05:21 Assess/Plan/Problems-Billing Assessment: 61 yo M with h/o bask pain x 1 week, that got suddenly worse on 08/13 after a turn to the right. H/o MGUS and CLL on BM bx in 2016. H/o skin lesion excised on upper anterior chest with pathology for positive for "Atypical lymphoplasmacytic infiltrate". - Patient Problems (1) Back pain Comment: intractable, suspect DDD, but due to h/o MGUS MRI with and without contrast will be obtained today for now will cont Dilaudid, Oxycontin and Flexeril. will add Valium for muscle spasms (2) DVT prophylaxis Comment: heparin sc (3) Leukocytosis Comment: due to stress, no evidence of infection , resolved (4) Acute renal failure Comment: pt had been using NSAIDS at home resolved after IVF Status and Disposition: OBV for intractable back pain
[2016-08-15] MEDS: PROCHLORPERAZINE INJ 5 MG/ML 2 ML VIAL IV PRN ×2 (11:01→21:23)
[2016-08-15] MEDS ORDERED: Gadoteridol* (CONTRAST) 279.3 MG/ML 10 ML IV ONE (12:08)
--- NOTE | 2016-08-15 12:53 | RAD ---
INDICATION: Intractable low back pain, elevated white blood count. COMPARISON: Comparison is made with a prior CT of the lumbar spine from August 13, 2016. TECHNIQUE: Axial and sagittal T1 and T2 and coronal T2-weighted images of the lumbar spine were obtained. In addition axial and sagittal T1-weighted images were obtained following intravenous injection of 20 ml of ProHance nonionic contrast. FINDINGS: There is a mild lumbar scoliosis convex toward the right side. The vertebra are otherwise in normal alignment. There is a small 1 cm T1 and T2 hyperintense lesion present within the T11 vertebral body most consistent with a hemangioma. No other focal osseous abnormalities or fractures are seen. No vertebral endplate erosions are present. No abnormal area of enhancement is noted. At the L2-L3 level there is a minimal broad-based disc bulge and mild hypertrophic changes within the facet joints. There is mild spinal canal narrowing. Neural foramen appear patent on both sides. At the L3-L4 level there is a mild broad-based disc bulge and mild hypertrophic changes within the facet joints. There is mild to moderate spinal canal narrowing. There is mild bilateral neural foraminal narrowing. At the L4-L5 level the intervertebral disc appears to be within normal limits. There are mild hypertrophic changes within the facet joints. No significant spinal canal or neural foraminal narrowing is seen. At the L5-S1 level there is a minimal broad-based disc bulge. No spinal canal or neural foraminal narrowing is seen. There are mild hypertrophic changes within the facet joints. IMPRESSION: 1. NO EVIDENCE FOR DISCITIS OR OSTEOMYELITIS. 2. MILD DEGENERATIVE DISC DISEASE AND FACET OSTEOARTHRITIS GIVING RISE TO MILD SPINAL CANAL NARROWING AT THE L2-L3 LEVEL AND MILD TO MODERATE SPINAL CANAL NARROWING AT THE L3-L4 LEVEL.
[2016-08-15] MEDS ORDERED: methylPREDNISolone ACETATE 80* 80 MG/ML 1 ML VIAL ONE (15:49)
[2016-08-15] MEDS ORDERED: Lidocaine 1% INJ* 10 MG/ML 30 ML SDV ONE (15:49)
[2016-08-15] MEDS ORDERED: HYDROmorphone INJ* 1 MG/ML CARPUJECT SYRINGE IV SLOW PU PRN (17:52)
[2016-08-15] MEDS ORDERED: Magnesium Hydroxide LIQ* 30 ML UDC PO ONE (17:53)
[2016-08-15] MEDS: Docusate CAP* 100 MG PO SCH (21:09)
[2016-08-15] MEDS: oxyCODONE SR TAB(*) 20 MG TAB.SR PO SCH (21:24)
[2016-08-15] MEDS: Diazepam TAB(*) 2 MG PO PRN (21:24)
--- NOTE | 2016-08-16 00:03 | PM ---
PAIN MANAGEMENT NOTE: DATE OF VISIT: 08/15/16 - Inpatient room #421-01 CHIEF COMPLAINT: Back pain. HISTORY: The patient is a 61-year-old male who is an inpatient at [facility]. I was contacted by Dr. Staples this afternoon to evaluate the patient for back pain and consider an epidural steroid injection. The patient was brought down from the floor and was at the pain center for evaluation. He states that he really cannot relate any significant incident that is causing his pain except for a fall 3 to 4 weeks ago, which he did not think of much at that time. He states slowly after that time, he has been having increasing low back pain. He denies any radiation of pain into his legs. He states he got to the point where he saw Dr. Palafox who prescribed pain medication and steroids hoping that the pain would improve, but it did not. He states his pain was a 10 /10, so severe, it caused him to feel like he wanted to collapse. He has not been able to move very much and was brought to the emergency room on 08/14/16 and admitted for intractable back pain. He has been treated with muscle relaxants and pain medications, but he is still having severe intractable pain. Again, on questioning him, he reports no radiation of pain into his lower extremities. He states any movement of his lower extremities causes back pain. PHYSICAL EXAMINATION: Today, his blood pressure was 137/76, pulse was 92, respirations are 16, O2 saturation was 95%. The patient is sitting in a wheelchair. He is very uncomfortable. He is sitting with the pain look on his face, cannot get comfortable on the stretcher, stating that it hurts his back. He again reports no pain in his legs. Gross physical exam shows 5/5 motor strength in his lower extremities. Reflexes were absent and he is 1+ at the Achilles bilaterally. He is intact to light touch sensation. Examination of his back reveals very limited exam. He cannot stand up and has pain with me palpating over the lower lumbar segments and he cannot flex or extend. RADIOLOGIC REVIEW: Shows an MRI of the lumbar spine dated 08/15/16 showing no evidence of diskitis or osteomyelitis, mild degenerative disk disease, facet osteoarthritis giving rise to mild spinal canal narrowing at L2-3 and mild to moderate spinal canal narrowing at L3-4. He had a CT scan of the lumbar spine as well dated 08/13/16. Again, that study shows minor spurring about the thoracolumbar junction with no acute CT findings. He also had a CT of the abdomen and pelvis done on 08/13/16. The report showed no acute finding. No evidence of aneurysm or dissection. I did look at the studies with the radiologist, Dr. Jackson and reviewed the MRI, CAT scan and the CAT scan of the abdomen and pelvis and question sukhwinder whether there was partial small bowel obstruction on the CT of the abdomen and pelvis. ASSESSMENT AND PLAN: I had talked to the patient extensively about treatment options. At this point, he has no radicular leg symptoms, a very unremarkable MRI of the lumbar spine as well as a CAT scan of the lumbar spine. I discussed epidural steroid injections with him as a means to try to manage his pain. I do not have a really good answer for why his pain is so severe. His pain is definitely out of proportion to any findings on the MRI of his lumbar spine and CAT scan of the lumbar spine. I talked to him about proceeding with an epidural steroid injection, more as a diagnostic so as therapeutic approach to see if there is anything else that we can do to help him. The patient was somewhat concerned that we are treating something that is really not diagnosed and means of just trying to help him because nothing else has at this point. I did talk to the patient about having the procedure. He thought about it and was in agreement to proceed with it. He has had epidural steroid injections in the past. The patient agreed to proceed. He went over to the fluoro suite and was being managed by the nurses to lay on his abdomen for the procedure while I reviewed all his studies with the radiologist. The radiologist said there is nothing seen on the MRI of the lumbar spine or CAT scan; however, there was some question of possibly a small bowel obstruction on the CT of the abdomen and pelvis. When I went back to the fluoro suite due to the procedure, the patient was lying at about 45-degree angle on his side as he could not lie on his belly. He started complaining of some discomfort in his abdomen. Again, he was very uncomfortable and at this point, I decided to abort the procedure and called Dr. Staples to discuss further options as I am not convinced that an epidural steroid injection is in this patient's best interest at this time. I advised her I would be happy to consider tomorrow; however, I would like to see how the patient does overnight before putting him through a procedure that may not necessarily be of some benefit. [id number]/[facility] #: [id number] ADI
[2016-08-16] MEDS ORDERED: NS 0.9% 1000 ML* 1,000 ML IV SCH (04:45)
[2016-08-16] MEDS: oxyCODONE SR TAB(*) 20 MG TAB.SR PO SCH (08:25)
[2016-08-16] MEDS: TESTOSTERONE 1.62% TD SCH (08:30)
[2016-08-16] MEDS: Docusate CAP* 100 MG PO SCH (08:30)
--- NOTE | 2016-08-16 11:50 | PN ---
Subjective Date of Service: 08/16/16 Interval History: pt stated that the pain is better controlled. Had 3 loose BM's yesterday. Denies abd pain. Denies incontinence, or sensation deficit, or weakness Objective Active Medications: Acetaminophen (Tylenol Supp*) 650 mg SC Q4H PRN PRN Reason: FEVER/PAIN Al Hydrox/Mg Hydrox/Simethicone (Maalox Plus*) 30 ml PO Q6H PRN PRN Reason: INDIGESTION Last Admin: 08/15/16 00:39 Dose: 30 ml Calcium Carbonate (Tums*) 500 mg PO Q6H PRN PRN Reason: INDIGESTION Clonazepam (Klonopin Tab(*)) 1 mg PO BEDTIME PRN PRN Reason: INSOMNIA Cyclobenzaprine HCl (Flexeril Tab*) 10 mg PO TID PRN PRN Reason: spasms Last Admin: 08/14/16 20:08 Dose: 10 mg Diazepam (Valium Tab(*)) 2 mg PO Q8H PRN PRN Reason: SPASMS Last Admin: 08/15/16 21:24 Dose: 2 mg Docusate Sodium (Colace Cap*) 100 mg PO BID [facility] Last Admin: 08/16/16 08:30 Dose: Not Given Hydromorphone HCl (Dilaudid Iv*) 1 mg IV SLOW PU Q2H PRN PRN Reason: PAIN Last Admin: 08/15/16 23:43 Dose: 1 mg Sodium Chloride (Ns 0.9% 1000 Ml*) 1,000 mls @ 125 mls/hr IV PER RATE [facility] Last Admin: 08/16/16 04:41 Dose: 125 mls/hr Non-Formulary Medication (Testosterone [Androgel Pump]) 1.62 % TD DAILY [facility] Last Admin: 08/16/16 08:30 Dose: Not Given Ondansetron HCl (Zofran Inj*) 4 mg IV Q4H PRN PRN Reason: NAUSEA Last Admin: 08/15/16 14:24 Dose: 4 mg Oxycodone HCl (Oxycontin(*)) 60 mg PO Q12HR [facility] Last Admin: 08/16/16 08:25 Dose: 40 mg Oxycodone/Acetaminophen (Percocet 5/325 Tab*) 2 tab PO Q4H PRN PRN Reason: PAIN Polyethylene Glycol/Electrolytes (Miralax*) 17 gm PO DAILY PRN PRN Reason: CONSTIPATION Prochlorperazine Edisylate (Compazine Inj*) 5 mg IV Q6H PRN PRN Reason: NAUSEA/VOMITING Last Admin: 08/15/16 21:23 Dose: 5 mg Senna (Senokot Tab*) 2 tab PO BEDTIME PRN PRN Reason: CONSTIPATION Vital Signs 08/15/16 08/15/16 08/15/16 12:00 13:01 14:25 Temperature Pulse Rate Respiratory 18 18 16 Rate Blood Pressure (mmHg) O2 Sat by Pulse Oximetry 08/15/16 08/15/16 08/15/16 15:23 15:25 19:12 Temperature 96.8 F 98.6 F Pulse Rate 109 113 Respiratory 18 16 18 Rate Blood Pressure 154/91 152/96 (mmHg) O2 Sat by Pulse 95 95 Oximetry 08/15/16 08/15/16 08/15/16 20:00 21:24 23:24 Temperature Pulse Rate Respiratory 18 20 18 Rate Blood Pressure (mmHg) O2 Sat by Pulse Oximetry 08/15/16 08/15/16 08/16/16 23:31 23:43 00:43 Temperature 98.2 F Pulse Rate 122 Respiratory 16 18 16 Rate Blood Pressure 150/93 (mmHg) O2 Sat by Pulse 97 Oximetry 08/16/16 08/16/16 08/16/16 01:58 04:15 04:20 Temperature 97.3 F 97.9 F 98.0 F Pulse Rate 116 120 117 Respiratory 15 16 15 Rate Blood Pressure 143/87 114/80 119/75 (mmHg) O2 Sat by Pulse 95 95 95 Oximetry 08/16/16 08/16/16 08/16/16 04:25 06:13 07:27 Temperature 98.0 F 97.9 F Pulse Rate 116 116 Respiratory 16 16 Rate Blood Pressure 120/70 131/78 128/76 (mmHg) O2 Sat by Pulse 96 94 Oximetry 08/16/16 08:25 Temperature Pulse Rate Respiratory 16 Rate Blood Pressure (mmHg) O2 Sat by Pulse Oximetry Oxygen Devices in Use Now: None Appearance: 61 yo M in nAd, aAOx3 Eyes: No Scleral Icterus, PERRLA Ears/Nose/Mouth/Throat: NL Teeth, Lips, Gums, Mucous Membranes Moist Neck: NL Appearance and Movements; NL JVP, Trachea Midline Respiratory: Symmetrical Chest Expansion and Respiratory Effort, Clear to Auscultation Cardiovascular: NL Sounds; No Murmurs; No JVD, RRR Abdominal: NL Sounds; No Tenderness; No Distention Lymphatic: No Cervical Adenopathy Extremities: No Edema, No Clubbing, Cyanosis Skin: No Rash or Ulcers, No Nodules or Sclerosis Neurological: Alert and Oriented x 3, - - ROM in b/l LES limited by pain, good muscle tone, Babinski neg b/l, tender over the lumbar muscles in L1-L5 area. Result Diagrams: 08/15/16 05:21 08/15/16 05:21 Additional Lab and Data: Lab Results 08/13/16 08/14/16 08/14/16 Range/Units 22:55 01:40 01:40 WBC 18.1 H (3.5-10.8) 10^3/ul RBC 5.94 H (4.0-5.4) 10^6/ul Hgb 16.8 (14.0-18.0) g/dl Hct 51 (42-52) % MCV 86 (80-94) fL MCH 28 (27-31) pg MCHC 33 (31-36) g/dl RDW 14 (10.5-15) % Plt Count 202 (150-450) 10^3/ul MPV 7 L (7.4-10.4) um3 Neut % (Auto) 69.3 (38-83) % Lymph % (Auto) 21.6 L (25-47) % Dickenson % (Auto) 8.4 (1-9) % Eos % (Auto) 0.2 (0-6) % Baso % (Auto) 0.5 (0-2) % Absolute Neuts (auto) 12.5 H (1.5-7.7) 10^3/ul Absolute Lymphs (auto) 3.9 (1.0-4.8) 10^3/ul Absolute Monos (auto) 1.5 H (0-0.8) 10^3/ul Absolute Eos (auto) 0 (0-0.6) 10^3/ul Absolute Basos (auto) 0.1 (0-0.2) 10^3/ul Absolute Nucleated RBC 0.01 10^3/ul Nucleated RBC % 0 Sodium 134 (133-145) mmol/L Potassium 3.6 (3.5-5.0) mmol/L Chloride 101 (101-111) mmol/L Carbon Dioxide 26 (22-32) mmol/L Anion Gap 7 (2-11) mmol/L BUN 25 H (6-24) mg/dL Creatinine 1.31 H (0.67-1.17) mg/dL Est GFR ( Amer) 72.0 (>60) Est GFR (Non-Af Amer) 56.0 (>60) BUN/Creatinine Ratio 19.1 (8-20) Glucose 91 (70-100) mg/dL Lactic Acid (0.5-2.0) mmol/L Calcium 8.9 (8.6-10.3) mg/dL Total Bilirubin 1.00 (0.2-1.0) mg/dL AST 15 (13-39) U/L ALT 11 (7-52) U/L Alkaline Phosphatase 45 (34-104) U/L Total Creatine Kinase 104 (10-223) U/L C-Reactive Protein < 1.00 (< 5.00) mg/L Total Protein 6.3 L (6.4-8.9) g/dL Albumin 3.4 (3.2-5.2) g/dL Globulin 2.9 (2-4) g/dL Albumin/Globulin Ratio 1.2 (1-3) Urine Color Straw Urine Appearance Clear Urine pH 6.0 (5-9) Ur Specific Beverly 1.003 L (1.010-1.030) Urine Protein Negative (Negative) Urine Ketones Negative (Negative) Urine Blood Negative (Negative) Urine Nitrate Negative (Negative) Urine Bilirubin Negative (Negative) Urine Urobilinogen Negative (Negative) Ur Leukocyte Esterase Negative (Negative) Urine Glucose Negative (Negative) 08/14/16 Range/Units 01:40 WBC (3.5-10.8) 10^3/ul RBC (4.0-5.4) 10^6/ul Hgb (14.0-18.0) g/dl Hct (42-52) % MCV (80-94) fL MCH (27-31) pg MCHC (31-36) g/dl RDW (10.5-15) % Plt Count (150-450) 10^3/ul MPV (7.4-10.4) um3 Neut % (Auto) (38-83) % Lymph % (Auto) (25-47) % Dickenson % (Auto) (1-9) % Eos % (Auto) (0-6) % Baso % (Auto) (0-2) % Absolute Neuts (auto) (1.5-7.7) 10^3/ul Absolute Lymphs (auto) (1.0-4.8) 10^3/ul Absolute Monos (auto) (0-0.8) 10^3/ul Absolute Eos (auto) (0-0.6) 10^3/ul Absolute Basos (auto) (0-0.2) 10^3/ul Absolute Nucleated RBC 10^3/ul Nucleated RBC % Sodium (133-145) mmol/L Potassium (3.5-5.0) mmol/L Chloride (101-111) mmol/L Carbon Dioxide (22-32) mmol/L Anion Gap (2-11) mmol/L BUN (6-24) mg/dL Creatinine (0.67-1.17) mg/dL Est GFR ( Amer) (>60) Est GFR (Non-Af Amer) (>60) BUN/Creatinine Ratio (8-20) Glucose (70-100) mg/dL Lactic Acid 1.8 (0.5-2.0) mmol/L Calcium (8.6-10.3) mg/dL Total Bilirubin (0.2-1.0) mg/dL AST (13-39) U/L ALT (7-52) U/L Alkaline Phosphatase (34-104) U/L Total Creatine Kinase (10-223) U/L C-Reactive Protein (< 5.00) mg/L Total Protein (6.4-8.9) g/dL Albumin (3.2-5.2) g/dL Globulin (2-4) g/dL Albumin/Globulin Ratio (1-3) Urine Color Urine Appearance Urine pH (5-9) Ur Specific Beverly (1.010-1.030) Urine Protein (Negative) Urine Ketones (Negative) Urine Blood (Negative) Urine Nitrate (Negative) Urine Bilirubin (Negative) Urine Urobilinogen (Negative) Ur Leukocyte Esterase (Negative) Urine Glucose (Negative) Assess/Plan/Problems-Billing Assessment: 61 yo M with h/o bask pain x 1 week, that got suddenly worse on 08/13 after a turn to the right. H/o MGUS and CLL on BM bx in 2016. H/o skin lesion excised on upper anterior chest with pathology for positive for "Atypical lymphoplasmacytic infiltrate". - Patient Problems (1) Back pain Comment: MRI shows mild DDD changes. appreciate Dr. Fall's consult- no injection indicated spoke with Dr. Du who stated that the changes are not severe and no surgery is indicated. Recommende PT/pain management for now will cont Oxycontin, oxycodone and Valium for muscle spasms PT eval pending (2) DVT prophylaxis Comment: heparin sc (3) Leukocytosis Comment: due to stress, no evidence of infection , resolved (4) Acute renal failure Comment: pt had been using NSAIDS at home resolved after IVF (5) Tachycardia Comment: suspect anxiety and pain related pt is euvolemic, nontoxic appearing Status and Disposition: Pt eval noted pt too weak and in too much pain to be able to ambulate with walker will place on inpatient status , ask neurology to see pt
[2016-08-16] MEDS: oxyCODONE/Acetamin 5/325 MG* TAB PO PRN ×2 (14:49→22:24)
[2016-08-16] MEDS ORDERED: Docusate CAP* 100 MG PO PRN (14:57)
[2016-08-16] MEDS: oxyCODONE SR TAB(*) 40 MG TAB.SR PO SCH (20:33)
--- NOTE | 2016-08-16 21:10 | CONS ---
CC: Dr. Walker NEUROLOGY CONSULTATION: DATE OF CONSULT: 08/16/16 LOCATION: The patient is an inpatient. REFERRING PHYSICIAN: Dr. Samantha Staples. PCP: Dr. Walker. REASON FOR CONSULT: Back pain. HISTORY OF PRESENT ILLNESS: Nimesh Pollack is a 61-year-old man with a history of idiopathic small fiber neuropathy as well as monoclonal gammopathy followed by Dr. Villanueva, who presented to the emergency department on the with increased acute low back pain. He reports that he had a minor fall about 3 to 4 weeks ago with some minor intermittent back pain since then, but a little over a week ago, it began to get worse and he describes it as both electric shock-like sensations in the center of his low back as well as a pulling sensation inward towards the midline. It got worse over the ensuing few days until he went to see his primary care physician last week and was prescribed steroids as well as a muscle relaxant and narcotic. He was told he most will feel better in a couple of days, but to take it easy, but he decided to go to work the last 2 days of last week and felt worse after that. On the day that he presented to the emergency department, he was coming out of the bathroom and twisted at the waist when he was suddenly immobilized by pain and could not walk any further. Throughout this, his pain has remained localized to the center of his low back at approximately L4-L5 level. He denies any radiation of the pain into his legs or any associated sensory changes. He has had no tej bowel or bladder dysfunction, though he has been constipated with increased narcotic use recently. He has been evaluated with lumbar spine CT as well as lumbar MRI with and without contrast, which had shown some mild degenerative changes, but nothing to explain the level of the pain that he has been in. He was evaluated by Dr. Fall for possible epidural spinal injection yesterday and it was ultimately decided not to proceed with that injection as there was no clear target on the MRI scan. Dr. Du also reportedly reviewed the study and felt that there was nothing surgical either. Given the patient's persistent pain, I was asked to evaluate the patient for any neurologic causes of his back pain. PAST MEDICAL HISTORY: 1. Small fiber neuropathy, followed by Dr. Donald. 2. Monoclonal gammopathy, followed by Dr. Villanueva. HOME MEDICATIONS: 1. Clonazepam 1 mg at bedtime as needed. 2. AndroGel. 3. Flexeril 3 times a day as needed. 4. OxyContin 40 mg q.12 hours as needed. 5. Medrol Dosepak. 6. Ibuprofen as needed. ALLERGIES: No known drug allergies. FAMILY HISTORY: Mother with heart issues. SOCIAL HISTORY: He denies tobacco, alcohol, or recreational drug use. 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 He is . REVIEW OF SYSTEMS: As per the HPI, otherwise negative. PHYSICAL EXAM: Vital Signs: Temperature 98.1, blood pressure 119/74, heart rate 103, oxygen saturation 94% on room air. On general exam, he is lying in his hospital bed, in no acute distress. Heart: Revealed a regular rate and rhythm with no murmurs, rubs, or gallops. Lungs: Clear to auscultation bilaterally. On musculoskeletal exam, there was no obvious spasm of the lumbar paraspinal muscles and no tenderness to palpation either over the vertebrae or musculature. On neurologic examination, his mental status is normal. Language is fluent without dysarthria or aphasia. On cranial nerve testing, pupils are equal, round, and reactive from 2 mm to 1.5 mm bilaterally. Versions are full without nystagmus. Lynn are full to confrontation. Facial sensation and musculature are full and symmetric. Tongue protrudes in the midline and the palate elevates symmetrically. Shoulder shrug is symmetric. On motor examination, he has normal bulk and tone in the upper and lower extremities. There is full strength both proximally and distally. Strength testing does not exacerbate his back pain at this time. On sensory testing, there are no deficits to light touch, proprioception, or vibration in the great toes. Reflexes are 2+ throughout the upper and lower extremities with downgoing toes bilaterally. There is no ataxia on finger-to- nose or sjyy-nx-foad testing. He was able to sit at the edge of the bed, appeared very stiff in changing position. He got up out of the bed without assistance, but then did use a walker to ambulate around the room and appeared very stiff and guarded when doing so, but actually reported minimal pain in his back that was just dull in quality. I do note that he had taken Percocet approximately an hour before my evaluation. DIAGNOSTIC STUDIES/LAB DATA: Reviewed shows a CBC with white count of 10.6, hematocrit of 50, and platelet count of 197. Chemistry profile overall unremarkable aside from elevated CRP of 19. Urinalysis was negative. MRI of the lumbar spine was personally reviewed and showed mild degenerative disk disease and facet osteoarthritis, which gives rise to mild spinal canal narrowing at the L2-3 level and [id number]-[id number] narrowing at the L3-4 level. There is no significant neural foraminal narrowing. Similar findings on the lumbar spine CT. IMPRESSION AND PLAN: Nimesh Pollack is a 61-year-old man who is admitted for acute back pain. His neurological examination is overall reassuring. I do not see any neurologic deficits at this time to suggest a neurologic reason for his back pain. It is possible this was a severe back spasm, which is resolving spontaneously. I would continue with pain management as per Dr. Staples and as an outpatient, he may benefit from physical therapy. I have no other specific recommendations at this time, but please feel free to contact me if the patient' s condition changes and I can be of further assistance. Thank you for this consultation. [id number]/[facility] [place] #: [id number] ADI
[2016-08-17] MEDS: oxyCODONE/Acetamin 5/325 MG* TAB PO PRN ×2 (04:11→10:02)
[2016-08-17] MEDS: Ondansetron INJ* 2 MG/ML VIAL IV PRN ×2 (04:11→10:00)
[2016-08-17 06:22] LABS: Hematocrit 51 % (42-52); Hemoglobin 17.1 g/dl (14.0-18.0); Mean Corpuscular HGB Conc 33 g/dl (31-36); Mean Corpuscular Hemoglobin 29 pg (27-31); Mean Corpuscular Volume 87 fL (80-94); Mean Platelet Volume 8 um3 (7.4-10.4); Red Cell Distribution Width 15 % (10.5-15); White Blood Count 13.2 10^3/ul (3.5-10.8)
[2016-08-17 06:28] LABS: C Reactive Protein 188.57 mg/L (< 5.00); Calcium 8.9 mg/dL (8.6-10.3); EGFR African American 98.4 (>60); EGFR Non-African American 76.5 (>60); Potassium 3.9 mmol/L (3.5-5.0)
[2016-08-17] MEDS: Diazepam TAB(*) 2 MG PO PRN (10:02)
[2016-08-17] MEDS: oxyCODONE SR TAB(*) 40 MG TAB.SR PO SCH (10:03)
[2016-08-17] MEDS: TESTOSTERONE 1.62% TD SCH (10:06)
--- NOTE | 2016-08-17 13:28 | DCNOTE ---
Patient seen this afternoon. Had N/V overnight which triggered pain again. Now has improved again, feels that he can manage at home. On exam, mild TTP along lumbar spine, no limitations of strength, RRR, s1 and s2 present no m/g/r CRP elevated. Plan to discharge home today, did well with PT, will arrange for home PT. Unclear why CRP is elevated, do not think he needs to remain in the hospital, will recheck as an outpatient. D/C on current pain regimen.
[2016-08-17 16:04] VITALS: BP 134/85
--- NOTE | 2016-08-18 00:56 | DS ---
DISCHARGE SUMMARY: DATE OF ADMISSION: 08/14/16 DATE OF DISCHARGE: 08/17/16 PRIMARY CARE PHYSICIAN: Dr. Roland Walker. PRINCIPAL DISCHARGE DIAGNOSIS: Back pain. SECONDARY DIAGNOSIS: Insomnia. STUDIES DONE DURING HOSPITALIZATION: CTA of the chest abdomen and pelvis, impression: No acute CT findings. No evidence of aneurysm or dissection. CT of the lumbar spine, impression: Minor spurring about the thoracolumbar junction. No acute CT findings. MRI of the lumbar spine, impression: No evidence for diskitis or osteomyelitis, mild degenerative disk disease and facet osteoarthritis giving rise to mild spinal canal narrowing at L2-L3 level and xfcp-gp-[id number] spinal canal narrowing at the L3-L4 level. CONSULTANTS DURING HOSPITALIZATION: 1. Dr. Gomez, Neurology. 2. Dr. Fall, Anesthesia/Pain Management. DISCHARGE MEDICATION REGIMEN: 1. Valium 2 mg by mouth every 8 hours as needed for spasm. 2. Colace 100 mg by mouth 2 times daily as needed for constipation. 3. Compazine 5 mg by mouth every 6 hours as needed for nausea. 4. Senna 2 tablets by mouth at bedtime as needed for constipation. 5. Percocet 5/325 two tablets by mouth every 4 hours as needed for pain. 6. Testosterone 1.62% TD daily. 7. Clonazepam 1 mg by mouth at bedtime as needed for insomnia. 8. Oxycodone sustained release 40 mg by mouth every 12 hours. HISTORY OF PRESENT ILLNESS AND HOSPITAL SUMMARY: Please see the full history and physical by Dr. Warren Staley for full details. Briefly, Mr. Pollack is a 61-year- old man with a past medical history of insomnia, who presented to the hospital with severe low back pain. This was in the context of a fall 3 to 4 weeks earlier. The patient was on outpatient pain medications and Medrol Dosepak; however, he continued to have worsening pain. The patient was given IV pain medications here. He underwent additional imaging as noted above that was largely unremarkable. He was seen by Dr. Fall, who was considering epidural spinal injection; however, the patient was having some abdominal pain on the table and based on the MRI, Dr. Fall was not sure where the optimum place for injection would be, so he decided to hold the procedure. Dr. Gomez of Neurology was also consulted and did not feel that the pain was neurologic in origin. Over the following days, the patient's pain slowly improved to the point where he is able to ambulate with a walker and was cleared by physical therapy to go home. He felt that he would be able to manage at home with help of his . Of note, on the day of discharge, the patient's CRP was noted to be 188. He had no clear signs of infection, procalcitonin that was checked was 0.4. He was instructed to repeat CRP done as an outpatient. TIME SPENT: Total time spent on this discharge 45 minutes. This is a summary of the hospitalization. Please see the full medical record for further details. CC: Dr. Roland Walker* [id number]/[facility] #: [id number]
== END 2016-08-17 16:45 | disposition home or self-care (01) | DRG 347 ==
LOC: ED 21:32 → MED 08-14 05:14 → OBSVTOIN 08-16 14:56
PROVIDERS: ADMIT Internal Medicine; ATTEND Hospitalist
DX: M54.5 Low back pain (principal); N17.9 Acute kidney failure, unspecified; C91.10 Chronic lymphocytic leukemia of B-cell type not having achieved remission; G62.9 Polyneuropathy, unspecified; G47.30 Sleep apnea, unspecified; F41.9 Anxiety disorder, unspecified; Z82.49 Family history of ischemic heart disease and other diseases of the circulatory system; R00.0 Tachycardia, unspecified; G47.00 Insomnia, unspecified; M51.36 Other intervertebral disc degeneration, lumbar region; R10.9 Unspecified abdominal pain
CPT/HCPCS: 36415; 71275; 72132; 72158; 74174; 80048; 80053; 81003; 82550; 83605; 84145; 85025; 86140; 93005; A9270-GY; J0780; J1040; J1170; J1644; J1885; J2270; J2405; J3360; Q9967

== ENCOUNTER 2017-08-26 13:41 | Emergency (ER) | payer BC ==
[2017-08-26 15:14] VITALS: BP 117/79
--- NOTE | 2017-08-26 16:14 | UC ---
Skin Complaint HPI - HPI Summary HPI Summary: 3-4 DAY H/O RED, HOT AREA RLE. STATES HE SCRATCHED HIS LEG A FEW DAYS AGO THEN DEVELOPED SURROUNDING REDNESS. GOT WORSE OVER PAST 2 DAYS THEN TODAY GOT MUCH BETTER. PAIN IS MINIMAL. NO DRAINAGE. NO FEVER. - History of Current Complaint Chief Complaint: UCSkin Time Seen by Provider: 08/26/17 15:18 Stated Complaint: SKIN COMPLAINT Hx Obtained From: Patient Onset/Duration: Sudden Onset, Lasting Days, Still Present Timing: Constant Onset Severity: Moderate Current Severity: Mild Pain Intensity: 2 Pain Scale Used: 0-10 Numeric Location: Discrete - RLE Character: Redness Aggravating Factor(s): Nothing Alleviating Factor(s): Other - SPONTANEOUS IMPROVEMENT - Allergy/Home Medications Allergies/Adverse Reactions: Allergies Allergy/AdvReac Type Severity Reaction Status Date / Time No Known Allergies Allergy Verified 08/26/17 15:14 Home Medications: Home Medications Ibuprofen [Advil] 600 mg PO 08/26/17 [History] Methylprednisolone [Medrol] 2 mg PO 08/26/17 [History] Review of Systems Constitutional: Negative Skin: Rash Respiratory: Negative Cardiovascular: Negative Gastrointestinal: Negative All Other Systems Reviewed And Are Negative: Yes PMH/Surg Hx/FS Hx/Imm Hx - Additional Past Medical History Additional PMH: AUTOIMMUNE D/O Other History Of: Negative For: Anticoagulant Therapy - Surgical History Surgical History: Yes Surgery Procedure, Year, and Place: L KNEE ACL - 1990- DR SAEZ. HERNIA 2013. SKIN REMOVED FROM CHEST - Family History Known Family History: Positive: Hypertension - Social History Alcohol Use: Rare Substance Use Type: None Smoking Status (MU): Never Smoked Tobacco - Immunization History Most Recent Influenza Vaccination: Fall 2015 Most Recent Tetanus Shot: unknown Most Recent Pneumonia Vaccination: never Physical Exam Triage Information Reviewed: Yes Appearance: Well-Appearing, No Pain Distress, Well-Nourished Vital Signs: Initial Vital Signs Temp 97.0 F 08/26/17 15:10 Pulse 85 08/26/17 15:10 Resp 18 08/26/17 15:10 BP 117/79 08/26/17 15:10 Pulse Ox 99 08/26/17 15:10 Vital Signs Reviewed: Yes Eyes: Positive: Conjunctiva Clear ENT: Positive: Hearing grossly normal Neck: Positive: Supple Respiratory: Positive: No respiratory distress, No accessory muscle use Cardiovascular: Positive: Pulses Normal Abdomen Description: Positive: Soft Musculoskeletal: Positive: ROM Intact, No Edema, Other: - NO CALF TENDERNESS. NEG HOMANS Neurological: Positive: Alert Psychological: Positive: Age Appropriate Behavior Skin: Positive: rashes - 8CM X 8CM AREA OF ERYTHEMA SURROUNDING A SPFL ABRASION RLE LATERALLY. MILDLY TENDER. NO DRAINAGE. Course/Dx - Course Course Of Treatment: SKIN CONDITION LOOKS TO BE INFLAMMATORY DUE TO LOCAL TRAUMA. IF IT DOES NOT CONTINUE TO IMPROVE ON ITS OWN, ERX FOR KEFLEX SENT. IF STILL NO BETTER THEN SEEK FOLLOW-UP. - Diagnoses Provider Diagnoses: INFLAMMATORY SKIN REACTION Discharge - Discharge Plan Condition: Stable Disposition: HOME Prescriptions: Cephalexin CAP* [Keflex 500 CAP*] 1,000 mg PO BID #28 cap Patient Education Materials: Cellulitis (ED), Abrasion (ED) Referrals: Roland Walker MD [Primary Care Provider] - If Needed Additional Instructions: YOUR SKIN LESION SEEMS TO BE IMPROVING ON IT'S OWN. IT APPEARS TO BE A LOCAL INFLAMMATORY RESPONSE TO MECHANICAL TRAUMA IN THE AREA. IF IT DOES NOT CONTINUE TO IMPROVE START THE ANTIBIOTIC TO COVER FOR SKIN INFECTION. IF STILL NOT IMPROVING SEEK FOLLOW-UP WITH YOUR PCP.
== END 2017-08-26 15:43 | disposition home or self-care (01) ==
LOC: UCEAST 13:41
DX: L08.9 Local infection of the skin and subcutaneous tissue, unspecified (principal)
CPT/HCPCS: 99212; G0463

== ENCOUNTER 2017-12-31 11:21 | Emergency (ER) | payer BC ==
[2017-12-31 11:36] VITALS: BP 117/80
[2017-12-31] MEDS ORDERED: BSS OPTH.SOL* BTL OPHTHALMIC ONE (11:40)
[2017-12-31] MEDS: Fluorescein Sod TOPICAL 0.6* 0.6 MG TEST OPHTHALMIC ONE ×2 (11:48→11:49)
--- NOTE | 2017-12-31 11:48 | UC ---
Eye Complaint HPI - HPI Summary HPI Summary: Patient awoke this morning with sensitive red left eye with some purulent drainage. Patient states he last uses contact lenses last night but he took him up for went to bed. No change in visual acuity. - History of Current Complaint Chief Complaint: UCEye Stated Complaint: EYE COMPLAINT Time Seen by Provider: 12/31/17 11:29 Hx Obtained From: Patient Onset/Duration: Sudden Onset Timing: Constant Pain Intensity: 3 Pain Scale Used: 0-10 Numeric Location of Injury: Conjunctiva Character: Dull Aggravating Factor(s): Nothing Alleviating Factor(s): Nothing Associated Signs And Symptoms: Positive: Drainage (Purulent) - Allergies/Home Medications Allergies/Adverse Reactions: Allergies Allergy/AdvReac Type Severity Reaction Status Date / Time No Known Allergies Allergy Verified 12/31/17 11:29 Home Medications: Home Medications Gabapentin [Neurontin] 200 mg PO 12/31/17 [History] celeCOXIB CAP* [Celebrex CAP*] 300 mg PO DAILY 12/31/17 [History Confirmed 12/31] PMH/Surg Hx/FS Hx/Imm Hx Previously Healthy: No Psychological History: Anxiety Other History Of: Negative For: Anticoagulant Therapy - Surgical History Surgical History: Yes Surgery Procedure, Year, and Place: L KNEE ACL - 1990- DR SAEZ. HERNIA 2013. SKIN REMOVED FROM CHEST - Family History Known Family History: Positive: Hypertension - Social History Occupation: Employed Full-time Lives: With Family Alcohol Use: Occasionally Substance Use Type: None Smoking Status (MU): Never Smoked Tobacco - Immunization History Most Recent Influenza Vaccination: Fall 2015 Most Recent Tetanus Shot: unknown Most Recent Pneumonia Vaccination: never Review of Systems Constitutional: Negative Skin: Negative Eyes: Drainage - OS, Eye Redness - OS ENT: Negative Respiratory: Negative Cardiovascular: Negative Gastrointestinal: Negative Genitourinary: Negative Motor: Negative Neurovascular: Negative Musculoskeletal: Negative Neurological: Negative Psychological: Negative Is Patient Immunocompromised?: No All Other Systems Reviewed And Are Negative: Yes Physical Exam Triage Information Reviewed: Yes Appearance: Well-Appearing, No Pain Distress, Well-Nourished Vital Signs: Initial Vital Signs Temp 98.1 F 12/31/17 11:25 Pulse 91 12/31/17 11:25 Resp 18 12/31/17 11:25 BP 117/80 12/31/17 11:25 Pulse Ox 99 12/31/17 11:25 Vital Signs Reviewed: Yes Eye Exam: Other Eyes: Positive: Conjunctiva Clear - OD, Conjunctiva Inflamed - OS, Discharge - OS ENT Exam: Normal ENT: Positive: Normal ENT inspection, Hearing grossly normal. Negative: Nasal congestion, Trismus, Muffled voice, Hoarse voice Dental Exam: Normal Neck exam: Normal Neck: Positive: Supple, Nontender Respiratory Exam: Normal Respiratory: Positive: Chest non-tender, No respiratory distress, No accessory muscle use Cardiovascular Exam: Normal Cardiovascular: Positive: RRR, Brisk Capillary Refill Musculoskeletal Exam: Normal Musculoskeletal: Positive: Strength Intact, ROM Intact, No Edema Neurological Exam: Normal Neurological: Positive: Alert, Muscle Tone Normal Psychological Exam: Normal Skin Exam: Normal Re-Evaluation - Re-Evaluation First Eval Change: Unchanged - Patient's eye was stained with fuloresien, observed under with wood lamp no evidence of ulcerations or trauma. Patient tolerated exam well I rinsed well with BSS after exam Eye Complaint Course/Dx - Course Course Of Treatment: Avoid contact lenses until eyes completely healed +1 additional day, if not completely resolved in the next 5 days must be rechecked with ophthalmology. Throughout contact lenses that he last had in and use new pair - Differential Dx/Diagnosis Differential Diagnosis/HQI/PQRI: Conjunctivitis Provider Diagnoses: conjuctivitis OS Discharge - Sign-Out/Discharge Documenting (check all that apply): Discharge/Admit/Transfer - Discharge Plan Condition: Stable Disposition: HOME Prescriptions: Ciprofloxacin 0.3% OPTH.DORI* [Cipro 0.3% Opth*] 1 drop LEFT EYE Q3H #1 btl Patient Education Materials: How to Use Eye Drops (ED), Conjunctivitis (ED) Referrals: Roland Walker MD [Primary Care Provider] - If Needed Rashard Beck MD [Medical Doctor] - If Needed - Billing Disposition and Condition Condition: STABLE Disposition: HOME
== END 2017-12-31 12:05 | disposition home or self-care (01) ==
LOC: UCEAST 11:21
DX: H10.32 Unspecified acute conjunctivitis, left eye (principal); F41.9 Anxiety disorder, unspecified
CPT/HCPCS: 99212; A9270-GY; G0463

== ENCOUNTER 2019-08-17 10:31 | Emergency (ER) | payer BC ==
[2019-08-17 10:51] VITALS: BP 107/81
--- NOTE | 2019-08-17 11:04 | UC ---
Throat Pain/Nasal Santiago HPI - History of Current Complaint Chief Complaint: UCRespiratory Stated Complaint: SINUS ISSUE, COUGH Time Seen by Provider: 08/17/19 10:42 Hx Obtained From: Patient Onset/Duration: Lasting Weeks - 3 weeks, Worse Since - 4 days Severity: Mild Pain Intensity: 5 Cough: Productive - yellow from nasal discharge Associated Signs & Symptoms: Positive: Sinus Discomfort, Nasal Discharge, Other - myalgia - Epiglottits Risk Factors Epiglottis Risk Factors: Negative - Allergies/Home Medications Allergies/Adverse Reactions: Allergies Allergy/AdvReac Type Severity Reaction Status Date / Time No Known Allergies Allergy Verified 08/17/19 10:49 Home Medications: Home Medications Acetaminophen [Mapap] 1,000 mg PO ONCE 08/17/19 [History Confirmed 08/17/19] Celecoxib [Celebrex] 1 tab PO DAILY 08/17/19 [History Confirmed 08/17/19] Dm/PE/Acetaminophen/Doxylamine [Vicks Dayquil-Nyquil Cold-Flu] 1 tab PO ONCE PRN 08/17/19 [History Confirmed 08/17/19] Tadalafil [Cialis] 1 tab PO DAILY PRN 08/17/19 [History Confirmed 08/17/19] PMH/Surg Hx/FS Hx/Imm Hx Previously Healthy: Yes Respiratory History: Pneumonia Other History Of: Negative For: Anticoagulant Therapy - Surgical History Surgical History: Yes Surgery Procedure, Year, and Place: L KNEE ACL - 1990- DR SAEZ. HERNIA 2013. SKIN REMOVED FROM CHEST - Family History Known Family History: Positive: Cardiac Disease, Hypertension - Social History Occupation: Employed Full-time - owns restaurants Lives: Alone Alcohol Use: Weekly Alcohol Amount: 4 Substance Use Type: None Smoking Status (MU): Never Smoked Tobacco - Immunization History Most Recent Influenza Vaccination: Fall 2015 Most Recent Tetanus Shot: unknown Most Recent Pneumonia Vaccination: never Review of Systems All Other Systems Reviewed And Are Negative: Yes Constitutional: Positive: Negative ENT: Positive: Nasal Discharge, Sinus Congestion Respiratory: Positive: Cough. Negative: Shortness Of Breath Cardiovascular: Positive: Negative Gastrointestinal: Positive: Negative Musculoskeletal: Positive: Myalgia Is Patient Immunocompromised?: No Physical Exam - Summary Physical Exam Summary: Appearance: The patient is well-appearing, is in no pain or distress, and is well-nourished. Eyes: Conjunctiva are clear. Pupils are equal and reactive to light and accommodation. Extra ocular muscle movement is intact. ENT: The hearing is grossly normal, the pharynx is normal, and the TMs are normal. There is no muffled or hoarse voice. No stridor. Slight tenderness maxillary sinuses. Neck: The neck is supple and there is no lymphadenopathy. Respiratory: The chest is non-tender to palpation and without crepitus. Diffuse rhonchi; few wheezes. There is no respiratory distress. No wheezes, rales or rhonchi. Cardiovascular: Heart sounds reveal a regular rate and rhythm. There are no clicks, rubs or murmurs. There are no carotid bruits or thrills. Circulation is grossly intact. Abdomen: The abdomen is soft and nontender. There is no organomegaly. Bowel sounds are present and within normal limits. No point tenderness at McBurneys point. No CVA tenderness. Musculoskeletal: Strength is intact. The patient moves all extremities. Neurological: The patient is alert. Motor and sensory are examination grossly intact. Speech is normal. Psychological: The patient displays age appropriate behavior, and is conversant. GCS=15. Skin: Negative for rashes. Vital Signs: Initial Vital Signs Temp 98.1 F 08/17/19 10:42 Pulse 103 08/17/19 10:42 Resp 18 08/17/19 10:42 BP 107/81 08/17/19 10:42 Pulse Ox 96 08/17/19 10:42 Vital Signs Reviewed: Yes Throat Pain/Nasal Course/Dx - Course Course Of Treatment: 64-year-old male with a 4 week history of intermittent sinus congestion, discharge, cough and myalgias of the upper extremities. This condition has worsened over the last 4 days. He has a pulse rate of 103 and 5/10 discomfort. His past medical history is contributory for the diagnosis of pneumonia. His physical exam shows mild maxillary sinus discomfort on palpation as well as diffuse rhonchi and wheezes. He has no chest pain. He is afebrile. I diagnosis is bronchitis with bronchospasm as well as sinus congestion with possible sinusitis. The patient's treatment will be Zithromax for 5 days as well as an albuterol inhaler and spacer for his cough. He was encouraged to drink warm fluids, use the inhaler and a hot shower to deal with his congestion and cough. The patient knows to follow up if his symptoms should worsen or if there is no improvement in 2-3 days. - Differential Dx/Diagnosis Differential Diagnosis/HQI/PQRI: Sinusitis, URI, Other - bronchitis with bronchospasm Provider Diagnosis: Bronchospasm with bronchitis, acute Discharge ED - Sign-Out/Discharge Documenting (check all that apply): Patient Departure All imaging exams completed and their final reports reviewed: No Studies - Discharge Plan Condition: Stable Disposition: HOME Prescriptions: Albuterol HFA INHALER* [Ventolin HFA Inhaler*] 1 - 2 puff INH Q4H 5 Days #1 mdi MDD 8 puffs Azithromycin TAB* [Zithromax TAB*] 250 mg PO DAILY #6 tab MDD 2 Inhaler, Assist Devices [Aerochamber Mv] 1 mis XX Q6HR #1 mis Patient Education Materials: Sinusitis (ED), Acute Bronchitis (ED), How to Use a Nebulizer (ED) Referrals: Roland Walker MD [Primary Care Provider] - Additional Instructions: WE DISCUSSED: PLEASE SEEK CARE AT THE EMERGENCY DEPARTMENT IF SYMPTOMS WORSEN OR IF NEW SYMPTOMS DEVELOP. FOLLOW UP WITH YOUR PRIMARY CARE PHYSICIAN IF CONDITION CONTINUES BEYOND 3 DAYS WITHOUT IMPROVEMENT. YOUR DIAGNOSIS IS:bronchitis with bronchospasm; sinusitis YOUR PRESCRIPTION RECOMMENDATION IS: Use the albuterol inhaler, 2 puffs 3-4 times a day for 3-5 days for cough or wheezing; use the Zithromax antibiotic for a total of 5 days as directed. FOR PAIN AND/OR SLEEP: For pain: Ibuprofen (Motrin and other brand names) 400-600mg PLUS acetaminophen (Tylenol and other brand names) 500mg - 1000mg every 8 hours. STAND UNDER SHOWER STREAM TO LOOSEN SECRETIONS. STAY AWAY FROM ANY SMOKE OR IRRITANTS. LOTS OF TEA or WARM FLUIDS. Recheck for any increased pain, temperature, difficulty breathing, or shortness of breath. - Billing Disposition and Condition Condition: STABLE Disposition: Home
== END 2019-08-17 11:24 | disposition home or self-care (01) ==
LOC: UCEAST 10:31
DX: J20.9 Acute bronchitis, unspecified (principal); M79.10 Myalgia, unspecified site
CPT/HCPCS: 99212; G0463

== ENCOUNTER 2019-08-22 07:37 | Emergency (ER) | payer BC ==
--- OUTSIDE RECORDS SUMMARY | 2019-08-22 07:43 | XMS REPORT | Continuity of Care Document ---
:1955 External Reference #:[id number] Author Name Chrissy De La Torre PA-C Address [address] [place] [address] Care Team Providers Name Role Phone Dakotah Hall [facility] Care Team Information Substation Superintendent Roland Walker M.D. - Family Medicine Care Team Information Substation Superintendent [phone] Bakari Neville M.D. Care Team Information Substation Superintendent [phone] Sp Villanueva MD - Hematology & Care Team Information Substation Superintendent Oncology Problems Active Problems Provider Date Sensorineural hearing loss, bilateral Bakari Hernandez M.D. Onset: 09/14 Dysfunction of eustachian tube Amrita Oliveros NP Onset: 09/14/2011 Acute upper respiratory infection Bakari Hernandez M.D. Onset: 2011 Bilateral tinnitus Bakari Hernandez M.D. Onset: 07/10/2015 Sensorineural hearing loss Bakari Hernandez M.D. Onset: 02/22/2012 Subjective tinnitus Bakari Hernandez M.D. Onset: 10/18/2011 Social History Type Date Description Comments Sex Unknown Tobacco Use Start: Unknown Never Smoked Cigarettes Tobacco Use Start: Unknown Never Smoked Cigars Tobacco Use Start: Unknown Never Smoked A Pipe Smokeless Tobacco Never Used Smokeless Tobacco ETOH Use Currently rarely consumes alcohol Tobacco Use Start: Unknown Patient has never smoked Smoking Status Reviewed: 05/08/18 Patient has never smoked Allergies, Adverse Reactions, Alerts Description No Known Drug Allergies Medications Active Medications SIG Qnty Indications Ordering Date Provider Sp Carcamo 1mg MMaria T Androgel Unknown Mayco Neville M.D., 200mg Capsules Sp Weber MD 4mg Tablets Tylenol as needed for Unknown 325mg Tablets pain Immunizations Description No Information Available Vital Signs Date Vital Result Comment 07/12/2019 10:10am Weight 210.00 lb Weight 95.256 kg Height 71.5 inches 5'11.50" Height in cm's 181.6 cm BMI (Body Mass Index) 28.9 kg/m2 05/08/2018 9:51am Weight 208.00 lb Weight 94.349 kg Height 71.5 inches 5'11.50" Height in cm's 181.6 cm BMI (Body Mass Index) 28.6 kg/m2 Results Description No Information Available Procedures Date Code Description Status 07/12/2019 66359 Removal Wax Impaction Completed Medical Devices Description No Information Available Encounters Description No Information Available Assessments Date Code Description Provider 07/12/2019 H61.23 Impacted cerumen, bilateral Chrissy De La Torre PA-C Plan of Treatment No Information Available Functional Status Description No Information Available Mental Status Description No Information Available Referrals Description No Information Available
[2019-08-22 07:56] VITALS: BP 128/77
[2019-08-22] MEDS ORDERED: Albuterol/Ipratropium NEB.SOL* Albuterol 2.5 MG/Ipratropium 0.5 MG 3 ML INH ONE (08:27)
--- NOTE | 2019-08-22 08:29 | UC ---
Respiratory Complaint HPI - HPI Summary HPI Summary: 64-year-old male comes in with a chief complaint of approximately with 10 days of upper respiratory tract infection symptoms. Is gone cough chest congestion. He feel short of breath. Cough is worse when he lays down. No chest pain no pedal edema. Has rhinorrhea. The chest congestion sputum is yellow. He was started on azithromycin and albuterol 5 days ago and the patient's worse rather than better. No history of congestive heart failure. - History of Current Complaint Chief Complaint: UCGeneralIllness Stated Complaint: RECHECK OF COUGH SINUS AND CONGESTION Time Seen by Provider: 08/22/19 08:13 Pain Intensity: 5 - Allergies/Home Medications Allergies/Adverse Reactions: Allergies Allergy/AdvReac Type Severity Reaction Status Date / Time No Known Allergies Allergy Verified 08/22/19 07:49 PMH/Surg Hx/FS Hx/Imm Hx Previously Healthy: Yes Other History Of: Negative For: Anticoagulant Therapy - Surgical History Surgical History: Yes Surgery Procedure, Year, and Place: L KNEE ACL - 1990- DR SAEZ. HERNIA 2013. SKIN REMOVED FROM CHEST - Family History Known Family History: Positive: Cardiac Disease, Hypertension - Social History Alcohol Use: Rare Alcohol Amount: 4 Substance Use Type: None Smoking Status (MU): Never Smoked Tobacco - Immunization History Most Recent Influenza Vaccination: Fall 2015 Most Recent Tetanus Shot: unknown Most Recent Pneumonia Vaccination: never Review of Systems All Other Systems Reviewed And Are Negative: Yes Constitutional: Positive: Other - SEE HPI Skin: Positive: Negative Eyes: Positive: Negative ENT: Positive: Sore Throat, Nasal Discharge, Sinus Congestion, Sinus Pain/ Tenderness Respiratory: Positive: Shortness Of Breath, Cough, Other - SEE HPI Cardiovascular: Positive: Negative Gastrointestinal: Positive: Negative Motor: Positive: Negative Neurovascular: Positive: Negative Musculoskeletal: Positive: Negative Neurological: Positive: Negative Psychological: Positive: Negative Is Patient Immunocompromised?: No Physical Exam Appearance: No Pain Distress, Well-Nourished, Ill-Appearing - MILD Vital Signs: Initial Vital Signs Temp 97.5 F 08/22/19 07:50 Pulse 100 08/22/19 07:50 Resp 20 08/22/19 07:50 BP 128/77 08/22/19 07:50 Pulse Ox 95 08/22/19 07:50 Vital Signs Reviewed: Yes Eye Exam: Normal Eyes: Positive: Conjunctiva Clear ENT: Positive: Pharyngeal erythema, Nasal congestion, Nasal drainage, TMs normal Neck: Positive: Supple Respiratory: Positive: No respiratory distress, Rhonchi Cardiovascular: Positive: RRR Musculoskeletal: Positive: Strength Intact, ROM Intact, No Edema - NO CALF TENDERNESS Neurological: Positive: Alert, Muscle Tone Normal Psychological: Positive: Age Appropriate Behavior Skin Exam: Normal Respiratory Course/Dx - Course Course Of Treatment: Undercover Agent: Pro Jasmine F ([id number]) Bender Machine Operator: JONNA ( NUANCE) Report Date: 08/22/2019 08:41:00 Report Status: Final ====== Start of Report Content Patient Name: MARIE MASSEY Medical Record#: [id number] Ordering Physician: Miguel A Blancas MD Acct.#: [id number] : 08/1954 Age: 64 Sex: M Location: [facility] Exam Date: 08/22/19814 ADM Status: REG ER Order Information: CHEST PA LAT 2 VWS Accession Number: [id number] CPT: 58492 INDICATION: Chest congestion. COMPARISON: Comparison is made with a prior study from November 20, 2018. TECHNIQUE: Dual-energy PA and lateral views of the chest were obtained. FINDINGS: The heart is within normal limits in size. Mediastinal and hilar contours appear within normal limits. The lungs are hyperinflated and clear. No pleural effusion is seen. IMPRESSION: NO EVIDENCE FOR ACTIVE CARDIOPULMONARY DISEASE. <Electronically signed by Pro Jasmine MD in OV> [id number] Dictated By: Pro Jasmine MD Dictated Date/Time: 08/22/19831 Transcribed Date/Time: 08/22/19831 Copy to: CC:Roland Walker MD; Miguel A Blancas MD Imaging - [facility] Imaging - [facility] Imaging - [facility] [address] [address] [place], [place] [id number] [place] [phone] ph [phone]) ph ) ph [phone]) End of Report Content I discussed the x-rays with the patient. No pneumonia seen on chest x-ray. Patient has no edema. Chest x-ray does not show evidence of CHF. No calf tenderness to palpation. Overall patient has been ill with upper respiratory tract infection symptoms. We will treat with accommodation of Omnicef and doxycycline for the possibility of early pneumonia and continued sinusitis. Also 3 days of prednisone 40 mg. Patient is on prednisolone daily which she will return to his normal dosing after the prednisone is done. I discussed with the patient that if he did not improve or if he worsens she needs to go to the emergency department. Also checking CRP, CBC, CMP and BNP. Follow-up his primary care doctor otherwise. - Differential Dx/Diagnosis Provider Diagnosis: Bronchitis, Sinusitis Discharge ED - Sign-Out/Discharge Documenting (check all that apply): Patient Departure All imaging exams completed and their final reports reviewed: Yes - Discharge Plan Condition: Stable Disposition: HOME Prescriptions: Cefdinir [Cefdinir 300 MG CAP] 300 mg PO BID #20 cap DOXYcycline CAP(*) [DOXYcycline 100MG CAP(*)] 100 mg PO BID #20 cap guaiFENesin/CODIENE 100mg/10mg [Robitussin AC 100Mg/10Mg in 5 ml] 10 ml PO Q4H PRN #180 ml MDD 60ML PRN Reason: Cough predniSONE 20 mg TAB [Deltasone 20 MG TAB*] 40 mg PO DAILY #6 tab Patient Education Materials: Sinusitis (ED), Acute Bronchitis (ED) Referrals: Roland Walker MD [Primary Care Provider] - Additional Instructions: FOLLOW UP WITH YOUR DOCTOR. GO TO THE EMERGENCY DEPARTMENT IF NOT IMPROVED OR WORSE; SHORTNESS OF BREATH, YOU FEEL ILL OR ANY QUESTIONS OR CONCERNS. - Billing Disposition and Condition Condition: STABLE Disposition: Home
[2019-08-22 12:10] LABS: ABS Eosinophils 0.1 10^3/ul (0-0.6); ABS Monocytes 0.9 10^3/ul (0-0.8); ABS Neutrophils 5.6 10^3/ul (1.5-7.7); Eosinophil % 1.5 %; Hematocrit 48 % (42-52); Hemoglobin 16.1 g/dL (14.0-18.0); Lymphocyte % 31.5 %; Mean Corpuscular HGB Conc 34 g/dL (31-36); Mean Corpuscular Hemoglobin 30 pg (27-31); Mean Corpuscular Volume 89 fL (80-94); Mean Platelet Volume 8.3 fL (7.4-10.4); Nucleated Red Blood Cells % 0.1; Platelet Count 180 10^3/uL (150-450); Red Blood Count 5.33 10^6 /uL (4.18-5.48); Red Cell Distribution Width 14 % (10-15); White Blood Count 9.7 10^3/uL (3.5-10.8)
[2019-08-22 12:47] LABS: Albumin 3.9 g/dL (3.2-5.2); Calcium 9.2 mg/dL (8.6-10.3); Potassium 4.7 mmol/L (3.5-5.0); Total Bilirubin 0.7 mg/dL (0.2-1.0)
[2019-08-22 12:53] LABS: Albumin/Globulin Ratio 1.5 (1-3); BUN/Creatinine Ratio 17.2 (8-20); C Reactive Protein 11.66 mg/L (<8.01); EGFR African American 99.6 (>60); EGFR Non-African American 82.3 (>60); Globulin 2.6 g/dL (2-4); Total Protein 6.5 g/dL (6.4-8.9)
--- NOTE | 2019-08-23 13:01 | UC ---
- Progress Note Progress Note: Reviewed [facility] clinic notes. Reviewed blood work as available. BNP 16 (nl range) CRP 11.66 (nl range < 8.01). Likely related to illness. Recommend scheduling f/u with PCP next week for recheck. Seek medical attention for worse or new problems in the meantime. RN to call pt with the above. Course/Dx - Diagnoses Provider Diagnoses: Bronchitis, Sinusitis Discharge ED - Sign-Out/Discharge Documenting (check all that apply): Post-Discharge Follow Up All imaging exams completed and their final reports reviewed: Yes - Discharge Plan Condition: Stable Disposition: HOME Prescriptions: Cefdinir [Cefdinir 300 MG CAP] 300 mg PO BID #20 cap DOXYcycline CAP(*) [DOXYcycline 100MG CAP(*)] 100 mg PO BID #20 cap guaiFENesin/CODIENE 100mg/10mg [Robitussin AC 100Mg/10Mg in 5 ml] 10 ml PO Q4H PRN #180 ml MDD 60ML PRN Reason: Cough predniSONE 20 mg TAB [Deltasone 20 MG TAB*] 40 mg PO DAILY #6 tab Patient Education Materials: Sinusitis (ED), Acute Bronchitis (ED) Referrals: Roland Walker MD [Primary Care Provider] - Additional Instructions: FOLLOW UP WITH YOUR DOCTOR. GO TO THE EMERGENCY DEPARTMENT IF NOT IMPROVED OR WORSE; SHORTNESS OF BREATH, YOU FEEL ILL OR ANY QUESTIONS OR CONCERNS. - Billing Disposition and Condition Condition: STABLE Disposition: Home
== END 2019-08-22 09:30 | disposition home or self-care (01) ==
LOC: UCEAST 07:37
DX: J40 Bronchitis, not specified as acute or chronic (principal); J32.9 Chronic sinusitis, unspecified; J02.9 Acute pharyngitis, unspecified
CPT/HCPCS: 36415; 71046; 80053; 83880; 85025; 86140; 99212; A9270-GY; G0463

== ENCOUNTER 2023-05-18 19:06 | Inpatient (IN) ==
[2023-05-18 19:49] LABS: ABS Basophils 0.1 10^3/uL (0.0-0.1); ABS Lymphocytes 4.8 10^3/uL (1.0-4.8); ABS Monocytes 0.5 10^3/uL (0.0-1.1); ABS Neutrophils 4.9 10^3/uL (1.5-7.6); ABS Nucleated RBC 0.03 10^3/ul; Eosinophil % 0.1 %; Hematocrit 44.5 % (38-53); Hemoglobin 15.4 g/dL (13.2-16.3); Lymphocyte % 46.3 %; Mean Corpuscular Hemoglobin 29.7 pg (27-33); Mean Corpuscular Hgb Conc 34.5 g/dL (31-36); Mean Corpuscular Volume 86.1 fL (80-97); Nucleated Red Blood Cells % 0.2 %/100WBC (0.0-0.8); Platelet Count 235 10^3/uL (150-450); Red Blood Count 5.17 10^6/uL (4.06-5.63); White Blood Count 10.3 10^3/uL (3.6-10.2)
[2023-05-18 19:55] LABS: Urine Appearance Clear; Urine Bilirubin Negative (Negative); Urine Blood Negative (Negative); Urine Color Yellow; Urine Glucose Negative (Negative); Urine Ketones Negative (Negative); Urine Nitrite Negative (Negative); Urine Protein Negative (Negative); Urine Specific Gravity 1.009 (1.002-1.030); Urine Urobilinogen Negative (Negative)
[2023-05-18 20:01] LABS: Albumin 4.1 g/dL (3.2-5.2); Calcium 9.8 mg/dL (8.6-10.3); Potassium 4.5 mmol/L (3.5-5.0)
[2023-05-18 20:07] LABS: Albumin/Globulin Ratio 1.1 (1-3); C Reactive Protein 156.4 mg/L (<8.01); Creatinine, Serum 1.17 mg/dL (0.67-1.17); Globulin 3.9 g/dL (2-4); eGFR CKD-EPI 69.2 (>60)
[2023-05-18] MEDS ORDERED: Lactated Ringers 1000 ml BAG 1,000 ML IV ONE (20:23)
[2023-05-18] MEDS ORDERED: Iohexol 350 (CONTRAST) 500 ML MDV IV ONE (20:34)
[2023-05-18] MEDS ORDERED: Piperacillin/Tazobac 3.375 BAG 3.375 GM/100 ML BAG IV ONE (21:37)
[2023-05-18] MEDS ORDERED: Zosyn per Pharmacy NOTE FOLLOW UP SCH (23:00)
[2023-05-18] MEDS ORDERED: Enoxaparin 40 MG/0.4 ML SYR SUBCUT SCH (23:45)
[2023-05-18] MEDS: NF:IPRATROPIUM BR (NF)0.06% NASAL 1 SPRAY BTL BOTH NARES SCH (23:46)
[2023-05-19] MEDS ORDERED: ZOSYN 3.375 GM Q8H per EXTENDED INFUSION IV SCH (02:00)
[2023-05-19] MEDS: ZOSYN 3.375 GM Q8H per EXTENDED INFUSION IV SCH ×3 (02:34→17:46)
[2023-05-19] MEDS: Lactated Ringers 1000 ml BAG 1,000 ML IV SCH ×3 (02:38→17:40)
[2023-05-19 06:53] LABS: Hematocrit 38.3 % (38-53); Hemoglobin 13.1 g/dL (13.2-16.3); Mean Corpuscular Hemoglobin 29.5 pg (27-33); Mean Corpuscular Hgb Conc 34.2 g/dL (31-36); Mean Corpuscular Volume 86.3 fL (80-97); Mean Platelet Volume 6.9 fL (7.5-11.2); Platelet Count 192 10^3/uL (150-450); Red Blood Count 4.44 10^6/uL (4.06-5.63); Red Cell Distribution Width 17.2 % (12-17); White Blood Count 12.5 10^3/uL (3.6-10.2)
[2023-05-19 08:27] LABS: Calcium 8.8 mg/dL (8.6-10.3); Creatinine, Serum 1.12 mg/dL (0.67-1.17); Magnesium 1.7 mg/dL (1.9-2.7); Phosphorus 3.2 mg/dL (2.5-5.0); Potassium 4.2 mmol/L (3.5-5.0); eGFR CKD-EPI 72.9 (>60)
[2023-05-19] MEDS ORDERED: Magnesium Sulfate 2 gm BAG 2 GM/50 ML BAG IVPB ONE (08:33)
[2023-05-19] MEDS: Acetaminophen IV 1 GM/100ML 1,000 MG/100 ML BAG IV SCH ×2 (08:50→16:41)
[2023-05-19] MEDS: NF:IPRATROPIUM BR (NF)0.06% NASAL 1 SPRAY BTL BOTH NARES SCH ×4 (08:59→21:13)
[2023-05-19 09:14] LABS: ABS Lymphocytes 5.1 10^3/uL (1.0-4.8); ABS Monocytes 0.5 10^3/uL (0.0-1.1); ABS Neutrophils 6.9 10^3/uL (1.5-7.6); ABS Nucleated RBC 0.02 10^3/ul; Eosinophil % 0.1 %; Lymphocyte % 40.7 %; Nucleated Red Blood Cells % 0.2 %/100WBC (0.0-0.8)
[2023-05-20] MEDS: Acetaminophen IV 1 GM/100ML 1,000 MG/100 ML BAG IV SCH ×3 (00:01→16:30)
[2023-05-20] MEDS: ZOSYN 3.375 GM Q8H per EXTENDED INFUSION IV SCH ×3 (02:59→18:23)
[2023-05-20] MEDS: Lactated Ringers 1000 ml BAG 1,000 ML IV SCH ×2 (06:15)
[2023-05-20 06:58] LABS: Hematocrit 39.6 % (38-53); Hemoglobin 13.4 g/dL (13.2-16.3); Mean Corpuscular Hemoglobin 29.2 pg (27-33); Mean Corpuscular Hgb Conc 33.7 g/dL (31-36); Mean Corpuscular Volume 86.7 fL (80-97); Mean Platelet Volume 7.2 fL (7.5-11.2); Platelet Count 178 10^3/uL (150-450); Red Blood Count 4.57 10^6/uL (4.06-5.63); Red Cell Distribution Width 17.3 % (12-17)
[2023-05-20 07:00] LABS: ABS Basophils 0.1 10^3/uL (0.0-0.1); ABS Eosinophils 0.1 10^3/uL (0.0-0.5); ABS Lymphocytes 5.6 10^3/uL (1.0-4.8); ABS Monocytes 0.4 10^3/uL (0.0-1.1); ABS Neutrophils 4.9 10^3/uL (1.5-7.6); ABS Nucleated RBC 0.01 10^3/ul; Eosinophil % 0.5 %; Lymphocyte % 50.5 %; Nucleated Red Blood Cells % 0.1 %/100WBC (0.0-0.8)
[2023-05-20 07:36] LABS: Calcium 9.1 mg/dL (8.6-10.3); Creatinine, Serum 0.97 mg/dL (0.67-1.17); Potassium 4.1 mmol/L (3.5-5.0); eGFR CKD-EPI 86.6 (>60)
[2023-05-20] MEDS: NF:IPRATROPIUM BR (NF)0.06% NASAL 1 SPRAY BTL BOTH NARES SCH ×4 (11:04→19:47)
[2023-05-20] MEDS: Heparin 5000 UNITS/ML 1 mL VIAL SUBCUT SCH ×2 (16:44→21:32)
[2023-05-21] MEDS: Acetaminophen IV 1 GM/100ML 1,000 MG/100 ML BAG IV SCH ×3 (00:29→15:51)
[2023-05-21] MEDS: ZOSYN 3.375 GM Q8H per EXTENDED INFUSION IV SCH ×3 (01:27→17:53)
[2023-05-21] MEDS: NF:IPRATROPIUM BR (NF)0.06% NASAL 1 SPRAY BTL BOTH NARES SCH ×4 (09:39→21:35)
[2023-05-21 13:30] LABS: ABS Basophils 0.1 10^3/uL (0.0-0.1); ABS Eosinophils 0.1 10^3/uL (0.0-0.5); ABS Lymphocytes 3.8 10^3/uL (1.0-4.8); ABS Monocytes 0.4 10^3/uL (0.0-1.1); ABS Neutrophils 4.3 10^3/uL (1.5-7.6); ABS Nucleated RBC 0.01 10^3/ul; Eosinophil % 1.1 %; Hematocrit 41.8 % (38-53); Hemoglobin 14.5 g/dL (13.2-16.3); Lymphocyte % 43.9 %; Mean Corpuscular Hemoglobin 29.7 pg (27-33); Mean Corpuscular Hgb Conc 34.7 g/dL (31-36); Mean Corpuscular Volume 85.4 fL (80-97); Mean Platelet Volume 6.9 fL (7.5-11.2); Nucleated Red Blood Cells % 0.1 %/100WBC (0.0-0.8); Platelet Count 203 10^3/uL (150-450); Red Blood Count 4.89 10^6/uL (4.06-5.63); Red Cell Distribution Width 16.9 % (12-17); White Blood Count 8.6 10^3/uL (3.6-10.2)
[2023-05-21 13:41] LABS: Activated Partial Thrombo Time 39.5 seconds (26.0-38.0); INR 1.13 (0.83-1.13)
[2023-05-21 13:57] LABS: Creatinine, Serum 1.02 mg/dL (0.67-1.17); eGFR CKD-EPI 81.6 (>60)
[2023-05-21] MEDS ORDERED: Heparin 5000 UNITS/ML 1 mL VIAL SUBCUT SCH (14:00)
[2023-05-21] MEDS: Lactated Ringers 1000 ml BAG 1,000 ML IV SCH (17:52)
[2023-05-21] MEDS ORDERED: Enoxaparin 40 MG/0.4 ML SYR SUBCUT SCH (21:00)
[2023-05-22] MEDS: Acetaminophen IV 1 GM/100ML 1,000 MG/100 ML BAG IV SCH ×2 (00:11→08:35)
[2023-05-22] MEDS: ZOSYN 3.375 GM Q8H per EXTENDED INFUSION IV SCH ×2 (01:59→10:37)
[2023-05-22] MEDS: Lactated Ringers 1000 ml BAG 1,000 ML IV SCH (01:59)
[2023-05-22 06:25] LABS: ABS Eosinophils 0.1 10^3/uL (0.0-0.5); ABS Lymphocytes 3.9 10^3/uL (1.0-4.8); ABS Monocytes 0.4 10^3/uL (0.0-1.1); ABS Neutrophils 3.2 10^3/uL (1.5-7.6); ABS Nucleated RBC 0.01 10^3/ul; Hematocrit 42.1 % (38-53); Hemoglobin 14.1 g/dL (13.2-16.3); Lymphocyte % 51.6 %; Mean Corpuscular Hemoglobin 28.8 pg (27-33); Mean Corpuscular Hgb Conc 33.5 g/dL (31-36); Mean Corpuscular Volume 86.1 fL (80-97); Mean Platelet Volume 7.2 fL (7.5-11.2); Nucleated Red Blood Cells % 0.1 %/100WBC (0.0-0.8); Platelet Count 194 10^3/uL (150-450); Red Blood Count 4.89 10^6/uL (4.06-5.63); Red Cell Distribution Width 16.3 % (12-17); White Blood Count 7.6 10^3/uL (3.6-10.2)
[2023-05-22 06:39] LABS: Calcium 9.1 mg/dL (8.6-10.3); Creatinine, Serum 1.03 mg/dL (0.67-1.17); Magnesium 1.8 mg/dL (1.9-2.7); eGFR CKD-EPI 80.6 (>60)
[2023-05-22] MEDS ORDERED: Magnesium Sulfate 2 gm BAG 2 GM/50 ML BAG IVPB ONE (07:03)
[2023-05-22] MEDS ORDERED: Pneumococcal Vac 23-Polyvalent IM ONE (09:00)
[2023-05-22] MEDS ORDERED: Influenza vaccine *QUAD* *2023-24* 0.5 ML SYRINGE IM ONE (09:00)
[2023-05-22] MEDS: NF:IPRATROPIUM BR (NF)0.06% NASAL 1 SPRAY BTL BOTH NARES SCH (10:43)
[2023-05-22 14:51] VITALS: BP 110/73
== END 2023-05-22 18:40 | disposition home or self-care (01) | DRG 244 ==
LOC: EDHOLD 19:06 → ED 19:06 → MEDTELE 22:48 → SUATTDRO 22:48 → MEDTELE 05-19 01:02 → SUATTDRO 05-19 10:44
PROVIDERS: ADMIT Internal Medicine; ATTEND Internal Medicine

== ENCOUNTER 2023-07-02 21:32 | Inpatient (IN) ==
[2023-07-02 22:05] LABS: ABS Basophils 0.1 10^3/uL (0.0-0.1); ABS Lymphocytes 4.1 10^3/uL (1.0-4.8); ABS Monocytes 0.2 10^3/uL (0.0-1.1); ABS Neutrophils 5.6 10^3/uL (1.5-7.6); ABS Nucleated RBC 0.03 10^3/ul; Eosinophil % 0.3 %; Hematocrit 45.1 % (38-53); Hemoglobin 15.7 g/dL (13.2-16.3); Lymphocyte % 40.6 %; Mean Corpuscular Hgb Conc 34.7 g/dL (31-36); Mean Corpuscular Volume 83.7 fL (80-97); Mean Platelet Volume 6.8 fL (7.5-11.2); Nucleated Red Blood Cells % 0.3 %/100WBC (0.0-0.8); Platelet Count 287 10^3/uL (150-450); Red Blood Count 5.39 10^6/uL (4.06-5.63); White Blood Count 10.1 10^3/uL (3.6-10.2)
[2023-07-02 22:43] LABS: Albumin 3.8 g/dL (3.2-5.2); C Reactive Protein 47.01 mg/L (<8.01); Calcium 9.4 mg/dL (8.6-10.3); Creatinine, Serum 1.1 mg/dL (0.67-1.17); Globulin 3.7 g/dL (2-4); Total Bilirubin 0.8 mg/dL (0.2-1.0); Total Protein 7.5 g/dL (6.4-8.9)
[2023-07-02] MEDS ORDERED: Lactated Ringers 1000 ml BAG 1,000 ML IV ONE (22:47)
[2023-07-02] MEDS ORDERED: Iohexol 300 (CONTRAST) 10 ML SDV IV ONE (23:07)
[2023-07-02 23:19] LABS: Urine Appearance Clear; Urine Bilirubin Negative (Negative); Urine Blood 1+ (Negative); Urine Color Yellow; Urine Glucose Negative (Negative); Urine Ketones Negative (Negative); Urine Nitrite Negative (Negative); Urine Protein Negative (Negative); Urine Specific Gravity 1.006 (1.002-1.030); Urine Urobilinogen Negative (Negative)
[2023-07-02 23:26] LABS: Urine Bacteria Absent (Absent); Urine Red Blood Cell Trace(0-2/hpf) (Absent); Urine White Blood Cell Trace(0-5/hpf) (Absent)
[2023-07-03] MEDS ORDERED: Lactated Ringers 1000 ml BAG 1,000 ML IV ONE (00:06)
[2023-07-03] MEDS ORDERED: Piperacillin/Tazobac 3.375 BAG 3.375 GM/100 ML BAG IV ONE ×2 (00:10→21:58)
[2023-07-03] MEDS ORDERED: Zosyn per Pharmacy NOTE FOLLOW UP SCH (01:00)
[2023-07-03] MEDS: ZOSYN 3.375 GM Q8H per EXTENDED INFUSION IV SCH ×3 (05:11→21:50)
[2023-07-03 06:32] LABS: ABS Basophils 0.1 10^3/uL (0.0-0.1); ABS Lymphocytes 3.7 10^3/uL (1.0-4.8); ABS Monocytes 0.5 10^3/uL (0.0-1.1); ABS Neutrophils 6.2 10^3/uL (1.5-7.6); ABS Nucleated RBC 0.02 10^3/ul; Eosinophil % 0.2 %; Hematocrit 41.8 % (38-53); Hemoglobin 14.3 g/dL (13.2-16.3); Mean Corpuscular Hemoglobin 28.8 pg (27-33); Mean Corpuscular Hgb Conc 34.2 g/dL (31-36); Mean Corpuscular Volume 84.3 fL (80-97); Mean Platelet Volume 6.7 fL (7.5-11.2); Nucleated Red Blood Cells % 0.2 %/100WBC (0.0-0.8); Platelet Count 253 10^3/uL (150-450); Red Blood Count 4.96 10^6/uL (4.06-5.63); Red Cell Distribution Width 16.4 % (12-17); White Blood Count 10.5 10^3/uL (3.6-10.2)
[2023-07-03 06:49] LABS: Albumin 3.3 g/dL (3.2-5.2); Albumin/Globulin Ratio 1.1 (1-3); Creatinine, Serum 0.92 mg/dL (0.67-1.17); Globulin 3.1 g/dL (2-4); Magnesium 1.7 mg/dL (1.9-2.7); Total Protein 6.4 g/dL (6.4-8.9); eGFR CKD-EPI 91.7 (>60)
[2023-07-03] MEDS: Magnesium Sulfate 2 gm BAG 2 GM/50 ML BAG IVPB ONE ×2 (08:07→09:42)
[2023-07-03] MEDS: NS 0.9% 1000 ml BAG 1,000 ML IV SCH (09:43)
[2023-07-03 09:52] LABS: INR 1.2 (0.83-1.13)
[2023-07-03] MEDS ORDERED: Lidocaine 1% w EPI 1:100,000 MDV 20 ML VIAL ONE (09:56)
[2023-07-03] MEDS ORDERED: Bupivacaine 0.25% SDV 30 ML ONE (09:56)
[2023-07-03] MEDS ORDERED: Lorazepam PYXIS KEY PRN (14:33)
[2023-07-03] MEDS: LORazepam 2 mg VIAL 1 ml IV PUSH PRN (18:42)
[2023-07-03] MEDS ORDERED: Bupivacaine 0.5% 50 ML MDV VIAL ONE (21:34)
[2023-07-03] MEDS ORDERED: Lidocaine 1% w EPI 1:200,000 SDV 30 ML VIAL ONE (21:34)
[2023-07-03] MEDS ORDERED: fentaNYL 100 mcg/2 ml 50 MCG/ML VIAL ONE (22:15)
[2023-07-03] MEDS ORDERED: Midazolam 2 mg/2 ml VIAL 1 mg/ml 2 ml VIAL (2 mg) ONE (22:15)
[2023-07-03] MEDS ORDERED: Propofol 10 MG/ML 20 ML BTL ONE (22:16)
[2023-07-03] MEDS ORDERED: Rocuronium 50 mg VIAL 10 mg/ml 5 ml VIAL (50 mg) ONE (22:17)
[2023-07-03] MEDS ORDERED: Dexamethasone IV 4 MG/ML VIAL 1 ml VIAL ONE (22:40)
[2023-07-03] MEDS ORDERED: Ondansetron 4 mg VIAL 2 MG/ML 2 ml VIAL ONE (22:40)
[2023-07-03] MEDS ORDERED: Lidocaine 2% PF 10 ML AMP (OR) ONE (23:12)
[2023-07-03] MEDS ORDERED: Acetaminophen IV 1 GM/100ML 1,000 MG/100 ML BAG IV ONE (23:27)
[2023-07-03] MEDS ORDERED: Lidocaine 0.5% SDV 50 ML VIAL ONE (23:30)
[2023-07-03] MEDS ORDERED: HYDROmorphone 0.5 MG/0.5 ML SYRINGE ONE (23:39)
[2023-07-04] MEDS ORDERED: fentaNYL 100 mcg/2 ml 50 MCG/ML VIAL IV PRN (00:43)
[2023-07-04] MEDS ORDERED: Naloxone 0.4 mg VIAL 0.4 mg/ml 1 ml VIAL IV PRN (00:43)
[2023-07-04] MEDS ORDERED: HYDROmorphone 1 MG/1 ML SYRINGE IV PRN (00:43)
[2023-07-04] MEDS ORDERED: Ondansetron 4 mg VIAL 2 MG/ML 2 ml VIAL IV PRN (00:43)
[2023-07-04] MEDS ORDERED: Naloxone 0.4 mg VIAL 0.4 mg/ml 1 ml VIAL IV PUSH PRN (01:14)
[2023-07-04] MEDS ORDERED: HYDROmorphone PCA 20 MG/20 ML PCA.SYRING PCA SCH (02:00)
[2023-07-04] MEDS: NS 0.9% 1000 ml BAG 1,000 ML IV SCH (03:11)
[2023-07-04 05:27] LABS: ABS Lymphocytes 0.9 10^3/uL (1.0-4.8); ABS Monocytes 0.4 10^3/uL (0.0-1.1); ABS Neutrophils 7.8 10^3/uL (1.5-7.6); Hematocrit 40.2 % (38-53); Hemoglobin 13.5 g/dL (13.2-16.3); Lymphocyte % 9.6 %; Mean Corpuscular Hemoglobin 28.7 pg (27-33); Mean Corpuscular Hgb Conc 33.6 g/dL (31-36); Mean Corpuscular Volume 85.4 fL (80-97); Mean Platelet Volume 6.4 fL (7.5-11.2); Platelet Count 256 10^3/uL (150-450); Red Blood Count 4.71 10^6/uL (4.06-5.63); White Blood Count 9.1 10^3/uL (3.6-10.2)
[2023-07-04] MEDS: ZOSYN 3.375 GM Q8H per EXTENDED INFUSION IV SCH ×3 (05:31→21:38)
[2023-07-04 05:57] LABS: Calcium 8.3 mg/dL (8.6-10.3); Creatinine, Serum 0.81 mg/dL (0.67-1.17); Potassium 4.5 mmol/L (3.5-5.0); eGFR CKD-EPI 97.2 (>60)
[2023-07-04] MEDS: Enoxaparin 40 MG/0.4 ML SYR SUBCUT SCH (10:23)
[2023-07-04] MEDS: Acetaminophen IV 1 GM/100ML 1,000 MG/100 ML BAG IV PRN (16:40)
[2023-07-04] MEDS: LORazepam 2 mg VIAL 1 ml IV PUSH PRN (23:25)
[2023-07-05] MEDS: NS 0.9% 1000 ml BAG 1,000 ML IV SCH ×3 (02:44→11:37)
[2023-07-05] MEDS: ZOSYN 3.375 GM Q8H per EXTENDED INFUSION IV SCH ×3 (05:06→20:55)
[2023-07-05 05:52] LABS: ABS Eosinophils 0.1 10^3/uL (0.0-0.5); ABS Lymphocytes 3.9 10^3/uL (1.0-4.8); ABS Monocytes 0.6 10^3/uL (0.0-1.1); ABS Neutrophils 3.9 10^3/uL (1.5-7.6); ABS Nucleated RBC 0.01 10^3/ul; Eosinophil % 0.6 %; Hematocrit 34.7 % (38-53); Hemoglobin 11.7 g/dL (13.2-16.3); Lymphocyte % 45.9 %; Mean Corpuscular Hemoglobin 28.6 pg (27-33); Mean Corpuscular Hgb Conc 33.6 g/dL (31-36); Mean Platelet Volume 6.8 fL (7.5-11.2); Nucleated Red Blood Cells % 0.1 %/100WBC (0.0-0.8); Platelet Count 239 10^3/uL (150-450); Red Blood Count 4.08 10^6/uL (4.06-5.63); Red Cell Distribution Width 16.6 % (12-17); White Blood Count 8.5 10^3/uL (3.6-10.2)
[2023-07-05 06:18] LABS: Calcium 8.1 mg/dL (8.6-10.3); Creatinine, Serum 0.84 mg/dL (0.67-1.17); eGFR CKD-EPI 96.2 (>60)
[2023-07-05] MEDS: Enoxaparin 40 MG/0.4 ML SYR SUBCUT SCH (08:37)
[2023-07-05] MEDS ORDERED: HYDROmorphone 0.5 MG/0.5 ML SYRINGE IV SLOW PU PRN (11:23)
[2023-07-05] MEDS ORDERED: HYDROmorphone 1 MG/1 ML SYRINGE IV SLOW PU PRN (11:23)
[2023-07-05] MEDS ORDERED: IPRATROPIUM BR (NF)0.06% NASAL 1 SPRAY BTL BOTH NARES PRN (11:24)
[2023-07-05 13:33] LABS: Immunoglobulin A 233 mg/dL (61 - 356); Immunoglobulin G 1290 mg/dL (767 - 1590); Immunoglobulin M 71 mg/dL (37 - 286)
[2023-07-05] MEDS: Acetaminophen IV 1 GM/100ML 1,000 MG/100 ML BAG IV PRN (17:12)
[2023-07-05] MEDS: LORazepam 2 mg VIAL 1 ml IV PUSH PRN (22:07)
[2023-07-06] MEDS: NS 0.9% 1000 ml BAG 1,000 ML IV SCH (01:08)
[2023-07-06] MEDS: Acetaminophen IV 1 GM/100ML 1,000 MG/100 ML BAG IV PRN ×2 (03:20→14:30)
[2023-07-06] MEDS: ZOSYN 3.375 GM Q8H per EXTENDED INFUSION IV SCH (05:32)
[2023-07-06 06:30] LABS: Hematocrit 32.3 % (38-53); Mean Corpuscular Hemoglobin 29.1 pg (27-33); Mean Corpuscular Hgb Conc 33.9 g/dL (31-36); Mean Corpuscular Volume 85.8 fL (80-97); Mean Platelet Volume 6.9 fL (7.5-11.2); Platelet Count 281 10^3/uL (150-450); Red Blood Count 3.77 10^6/uL (4.06-5.63); Red Cell Distribution Width 16.3 % (12-17); White Blood Count 7.5 10^3/uL (3.6-10.2)
[2023-07-06 07:06] LABS: Calcium 8.2 mg/dL (8.6-10.3); Creatinine, Serum 0.73 mg/dL (0.67-1.17); Magnesium 1.7 mg/dL (1.9-2.7); Potassium 3.8 mmol/L (3.5-5.0); eGFR CKD-EPI 100.3 (>60)
[2023-07-06] MEDS ORDERED: Magnesium Sulfate 2 gm BAG 2 GM/50 ML BAG IVPB ONE (08:22)
[2023-07-06] MEDS ORDERED: HYDROmorphone 0.5 MG/0.5 ML SYRINGE IV SLOW PU PRN (11:45)
[2023-07-06] MEDS: cefTRIAXone 2 gm/50 mL D5W 2 GM/50 ML BAG IV SCH (13:42)
[2023-07-06] MEDS: Enoxaparin 40 MG/0.4 ML SYR SUBCUT SCH (18:29)
[2023-07-06] MEDS: metroNIDAZOLE IV 500 MG/100ML 500 MG/100 ML BAG IVPB SCH (18:34)
[2023-07-07] MEDS: metroNIDAZOLE IV 500 MG/100ML 500 MG/100 ML BAG IVPB SCH ×3 (01:37→19:03)
[2023-07-07] MEDS: Acetaminophen IV 1 GM/100ML 1,000 MG/100 ML BAG IV PRN (02:52)
[2023-07-07] MEDS: LORazepam 2 mg VIAL 1 ml IV PUSH PRN (05:33)
[2023-07-07 06:17] LABS: ABS Eosinophils 0.1 10^3/uL (0.0-0.5); ABS Lymphocytes 3.2 10^3/uL (1.0-4.8); ABS Monocytes 0.4 10^3/uL (0.0-1.1); ABS Neutrophils 3.4 10^3/uL (1.5-7.6); Hematocrit 33.7 % (38-53); Hemoglobin 11.4 g/dL (13.2-16.3); Lymphocyte % 43.9 %; Mean Corpuscular Hemoglobin 28.7 pg (27-33); Mean Corpuscular Hgb Conc 33.7 g/dL (31-36); Mean Corpuscular Volume 85.1 fL (80-97); Mean Platelet Volume 6.7 fL (7.5-11.2); Platelet Count 318 10^3/uL (150-450); Red Blood Count 3.97 10^6/uL (4.06-5.63); White Blood Count 7.2 10^3/uL (3.6-10.2)
[2023-07-07 06:33] LABS: Calcium 8.7 mg/dL (8.6-10.3); Creatinine, Serum 0.79 mg/dL (0.67-1.17); Potassium 3.8 mmol/L (3.5-5.0)
[2023-07-07] MEDS: cefTRIAXone 2 gm/50 mL D5W 2 GM/50 ML BAG IV SCH (12:44)
[2023-07-07] MEDS: Ondansetron 4 mg VIAL 2 MG/ML 2 ml VIAL IV PRN (17:15)
[2023-07-07] MEDS: Enoxaparin 40 MG/0.4 ML SYR SUBCUT SCH (17:18)
[2023-07-08] MEDS: Ondansetron 4 mg VIAL 2 MG/ML 2 ml VIAL IV PRN ×3 (00:51→14:56)
[2023-07-08] MEDS: Acetaminophen IV 1 GM/100ML 1,000 MG/100 ML BAG IV PRN (00:51)
[2023-07-08] MEDS: metroNIDAZOLE IV 500 MG/100ML 500 MG/100 ML BAG IVPB SCH ×2 (02:09→10:28)
[2023-07-08 07:11] LABS: ABS Eosinophils 0.2 10^3/uL (0.0-0.5); ABS Monocytes 0.5 10^3/uL (0.0-1.1); ABS Neutrophils 3.2 10^3/uL (1.5-7.6); Eosinophil % 2.6 %; Hematocrit 35.5 % (38-53); Lymphocyte % 43.2 %; Mean Corpuscular Hemoglobin 28.7 pg (27-33); Mean Corpuscular Hgb Conc 33.8 g/dL (31-36); Mean Platelet Volume 6.6 fL (7.5-11.2); Nucleated Red Blood Cells % 0.1 %/100WBC (0.0-0.8); Platelet Count 355 10^3/uL (150-450); Red Blood Count 4.17 10^6/uL (4.06-5.63); White Blood Count 6.9 10^3/uL (3.6-10.2)
[2023-07-08 07:35] LABS: Magnesium 1.8 mg/dL (1.9-2.7)
[2023-07-08] MEDS ORDERED: Magnesium Sulfate 2 gm BAG 2 GM/50 ML BAG IVPB ONE (08:30)
[2023-07-08 10:05] LABS: Calcium 9.1 mg/dL (8.6-10.3); Creatinine, Serum 0.78 mg/dL (0.67-1.17); Phosphorus 3.5 mg/dL (2.5-5.0); Potassium 4.2 mmol/L (3.5-5.0); eGFR CKD-EPI 98.4 (>60)
[2023-07-08] MEDS: Enoxaparin 40 MG/0.4 ML SYR SUBCUT SCH (17:21)
[2023-07-09] MEDS: Acetaminophen IV 1 GM/100ML 1,000 MG/100 ML BAG IV PRN (05:54)
[2023-07-09] MEDS ORDERED: TESTOSTERONE TOPICAL SCH (09:00)
[2023-07-09] MEDS ORDERED: [UNRECOGNIZED DRUG - OTHER] TOPICAL SCH (09:00)
[2023-07-09] MEDS ORDERED: Testosterone Cypionate (NF) 200 MG/ML VIAL IM ONE (10:00)
[2023-07-09] MEDS: Enoxaparin 40 MG/0.4 ML SYR SUBCUT SCH (18:04)
[2023-07-10 14:41] VITALS: BP 109/73
== END 2023-07-10 16:45 | disposition home or self-care (01) | DRG 710 ==
LOC: ED 21:32 → SUATTDRO 07-03 00:54 → EDHOLD 07-03 00:54 → SSU 07-03 13:20
PROVIDERS: ADMIT Internal Medicine; ATTEND Internal Medicine

== ENCOUNTER 2023-08-25 08:43 | Inpatient (IN) ==
[~2023-08-25 08:43] MED LIST: Buffered Lidocaine 1% SYRIN 1 ml INTRADERM ONE; Dexamethasone IV 4 MG/ML VIAL 1 ml VIAL ONE; Lactated Ringers 1000 ml BAG 1,000 ML IV SCH; Lidocaine 2% PF 5 ML VIAL ONE; Metoclopramide 5 MG/ML VIAL (10 mg) IV PRN; Midazolam 2 mg/2 ml VIAL 1 mg/ml 2 ml VIAL (2 mg) ONE; Naloxone 0.4 mg VIAL 0.4 mg/ml 1 ml VIAL IV PRN; Ondansetron 4 mg VIAL 2 MG/ML 2 ml VIAL IV PRN; Ondansetron 4 mg VIAL 2 MG/ML 2 ml VIAL ONE; Propofol 10 MG/ML 20 ML BTL ONE; Rocuronium 50 mg VIAL 10 mg/ml 5 ml VIAL (50 mg) ONE; Scopolamine 1 mg/72hr PATCH TRANSDERM ONE; fentaNYL 100 mcg/2 ml 50 MCG/ML VIAL ONE
[2023-08-25] MEDS ORDERED: ceFOXitin 2 GM IVPREMIX 2 GM/50 ML BAG ONE (09:14)
[2023-08-25] MEDS ORDERED: Scopolamine 1 mg/72hr PATCH ONE (09:14)
[2023-08-25] MEDS ORDERED: Bupivacaine 0.5% SDV PF 30ML VIAL ONE (09:19)
[2023-08-25] MEDS ORDERED: Lidocaine 1% w EPI 1:100,000 MDV 20 ML VIAL ONE (09:20)
[2023-08-25] MEDS ORDERED: Metoclopramide 5 MG/ML VIAL (10 mg) IV PRN (09:33)
[2023-08-25] MEDS ORDERED: Naloxone 0.4 mg VIAL 0.4 mg/ml 1 ml VIAL IV PRN ×2 (09:33)
[2023-08-25] MEDS ORDERED: fentaNYL 100 mcg/2 ml 50 MCG/ML VIAL IV PRN (09:33)
[2023-08-25] MEDS ORDERED: Ondansetron 4 mg VIAL 2 MG/ML 2 ml VIAL IV PRN ×2 (09:33→12:43)
[2023-08-25 09:36] LABS: Rapid COVID-19 Molecular Undetected (Undetected)
[2023-08-25] MEDS ORDERED: Ondansetron 4 mg VIAL 2 MG/ML 2 ml VIAL ONE (10:44)
[2023-08-25] MEDS ORDERED: Dexamethasone IV 4 MG/ML VIAL 1 ml VIAL ONE (10:44)
[2023-08-25 10:50] LABS: Anion Gap 10 mmol/L (2-16); Blood Urea Nitrogen 16 mg/dL (6-24); CO2 Carbon Dioxide 24 mmol/L (22-32); Calcium 9.8 mg/dL (8.6-10.3); Chloride 105 mmol/L (101-111); Creatinine, Serum 0.88 mg/dL (0.67-1.17); Glucose 86 mg/dL (70-100); Sodium 139 mmol/L (135-145); eGFR CKD-EPI 94.8 (>60)
[2023-08-25] MEDS ORDERED: Phenylephrine 40 mcg/mL 10mL (400mcg) SYRINGE ONE (10:50)
[2023-08-25] MEDS ORDERED: fentaNYL 100 mcg/2 ml 50 MCG/ML VIAL ONE ×2 (11:44→13:05)
[2023-08-25] MEDS ORDERED: Lactated Ringers 1000 ml BAG 1,000 ML IV ONE (12:36)
[2023-08-25] MEDS ORDERED: NF:IPRATROPIUM BR (NF)0.06% NASAL 1 SPRAY BTL BOTH NARES PRN (12:40)
[2023-08-25] MEDS ORDERED: HYDROmorphone 0.5 MG/0.5 ML SYRINGE IV SLOW PU PRN (12:43)
[2023-08-25] MEDS ORDERED: HYDROmorphone 1 MG/1 ML SYRINGE IV SLOW PU PRN (12:43)
[2023-08-25] MEDS: fentaNYL 100 mcg/2 ml 50 MCG/ML VIAL IV PRN ×4 (13:08→13:18)
[2023-08-25] MEDS ORDERED: HYDROmorphone 1 MG/1 ML SYRINGE ONE (13:58)
[2023-08-25] MEDS: HYDROmorphone 1 MG/1 ML SYRINGE IV SLOW PU PRN ×4 (14:09→14:51)
[2023-08-25] MEDS: Heparin 5000 UNITS/ML 1 mL VIAL SUBCUT SCH (22:20)
[2023-08-26] MEDS: Heparin 5000 UNITS/ML 1 mL VIAL SUBCUT SCH ×3 (05:55→22:32)
[2023-08-27] MEDS: Heparin 5000 UNITS/ML 1 mL VIAL SUBCUT SCH ×3 (07:35→20:59)
[2023-08-28] MEDS: Heparin 5000 UNITS/ML 1 mL VIAL SUBCUT SCH (05:32)
[2023-08-28 06:37] VITALS: BP 134/77
== END 2023-08-28 11:10 | disposition home or self-care (01) | DRG 223 ==
LOC: AA 08:43 → EDSTATUS 11:00 → SSU 17:22
PROVIDERS: ADMIT Surgery; ATTEND Surgery